=== PATIENT | female | born 1975 | race Caucasian/White ===

== ENCOUNTER 2017-08-07 21:16 | Emergency (ER) | payer OTHER ==
[2017-08-07] MEDS ORDERED: Aspirin 81 MG Tab.Chew PO ONE (21:17)
[2017-08-07] MEDS ORDERED: Sodium Chloride 0.9% 1,000 ML IV ONE (21:30)
[2017-08-07] MEDS ORDERED: Nitroglycerin 0.4 MG Tab.SL SL PRN (21:30)
--- NOTE | 2017-08-07 21:30 | EDM.PDOC ---
<Dawit Morgan - Last Filed: 08/07/17 23:57> ED HPI GENERAL MEDICAL PROBLEM - General Stated Complaint: CHEST PAIN Time Seen by Provider: 08/07/17 21:25 - History of Present Illness INITIAL COMMENTS - FREE TEXT/NARRATIVE: Patient is seen and examined agree with above HEENT grossly within normal limits Chest clear throughout CV regular rate and rhythm Abdomen soft nontender benign exam Extremities full range of motion strength 5 out of 5 no edema [employer]ER alert nonfocal Lab as below EKG Chest 1 view Assessment Anxiety Chest pain resolved Hypertension-improved Medication noncompliance Headache resolved Vasotec 1.25 mg IV Plan Lopressor 5 mg IV 3 Toradol 30 mg IV Patient discharged with hydrochlorothiazide 25 mg by mouth daily #30 no refill Ativan 0.5 mg by mouth twice a day #10 no refill Definitive disposition and diagnosis as appropriate pending reevaluation and review of above - Related Data Allergies Allergy/AdvReac Type Severity Reaction Status Date / Time morphine Allergy Anaphylactic Verified 08/07/17 21:26 Shock Home Meds: Home Meds . [No Known Home Meds] 08/07/17 [History] Course - Vital Signs Last Recorded V/S: Last Vital Signs Temp 98.2 F 08/08/17 00:14 Pulse 74 08/08/17 00:14 Resp 18 08/08/17 00:14 BP 158/86 H 08/08/17 00:14 Pulse Ox 97 08/08/17 00:14 - Orders/Labs/Meds Orders: Active Orders 24 hr Category Date Time Status EKG Documentation Completion [RC] STAT Care 08/07/17 21:17 Active CULTURE URINE [RM] Stat Lab 08/07/17 22:51 Received Labs: Laboratory Tests 08/07/17 08/07/17 08/07/17 Range/Units 21:27 21:27 21:27 WBC 11.19 H (4.0-11.0) K/uL RBC 4.63 (4.30-5.90) M/uL Hgb 8.1 L (12.0-16.0) g/dL Hct 27.8 L (36.0-46.0) % MCV 60.0 L (80.0-98.0) fL MCH 17.5 L (27.0-32.0) pg MCHC 29.1 L (31.0-37.0) g/dL RDW Std Deviation 40.3 (28.0-62.0) fl RDW Coeff of Radha 19 H (11.0-15.0) % Plt Count 216 (150-400) K/uL Add Manual Diff YES Neutrophils % (Manual) 60 (48.0-80.0) % Band Neutrophils % 3 % Lymphocytes % (Manual) 35 (16.0-40.0) % Monocytes % (Manual) 2 (0.0-15.0) % Nucleated RBC % 0.0 /100WBC Absolute Seg Neuts 6.7 H (1.4-5.7) Band Neutrophils # 0.3 Lymphocytes # (Manual) 3.9 H (0.6-2.4) Monocytes # (Manual) 0.2 (0.0-0.8) Nucleated RBCs # 0 K/uL Sodium 136 (136-146) mmol/L Potassium 3.9 (3.5-5.1) mmol/L Chloride 105 (98-110) mmol/L Carbon Dioxide 22 (21-31) mmol/L BUN 9 (6.0-23.0) mg/dL Creatinine 0.7 (0.6-1.5) mg/dL Est Cr Clr Drug Dosing 90.41 mL/min Estimated GFR (MDRD) > 60.0 ml/min Glucose 87 (60-110) mg/dL Calcium 9.3 (8.8-10.8) mg/dL Total Bilirubin 0.2 (0.1-1.5) mg/dL AST 17 (5-40) IU/L ALT 9 (8-54) IU/L Alkaline Phosphatase 135 (40-150) Troponin I < 0.10 (0.0-0.29) NG/ML Total Protein 8.0 (6.0-8.0) g/dL Albumin 3.9 (3.5-5.0) g/dL Globulin 4.1 H (2.0-3.5) g/dL Albumin/Globulin Ratio 1.0 L (1.3-2.8) TSH 3rd Generation 1.13 (0.47-5.0) uIU/mL Meds: Medications Discontinued Medications Generic Name Dose Route Start Last Admin Trade Name Freq PRN Reason Stop Dose Admin Aspirin 324 mg 08/07/17 21:17 08/07/17 21:41 Aspirin PO 08/07/17 21:18 324 mg ONETIME ONE Administration Enalaprilat 1.25 mg 08/07/17 23:15 08/07/17 23:32 Vasotec Iv IVPUSH 08/07/17 23:16 1.25 mg ONETIME ONE Administration Sodium Chloride 1,000 mls @ 999 mls/hr 08/07/17 21:30 08/07/17 21:48 Normal Saline IV 08/07/17 22:30 999 mls/hr STAT ONE Administration Ketorolac Tromethamine 30 mg 08/07/17 23:37 08/07/17 23:51 Toradol IVPUSH 08/07/17 23:38 30 mg ONETIME ONE Administration Lorazepam 1 mg 08/07/17 21:34 08/07/17 21:42 Ativan IVPUSH 08/07/17 21:35 1 mg ONETIME ONE Administration Metoprolol Tartrate 5 mg 08/07/17 22:15 08/07/17 23:18 Lopressor IVPUSH 08/07/17 22:26 5 mg Q5M POPPY Administration Metoprolol Tartrate 5 mg 08/07/17 23:00 08/07/17 23:22 Lopressor IVPUSH 08/07/17 23:11 Not Given Q5M POPPY Nitroglycerin 0.4 mg 08/07/17 21:30 Nitrostat SL Q5M PRN Chest Pain Departure - Departure Time of Disposition: 00:01 Disposition: Home, Self-Care 01 Condition: Good Clinical Impression: Anxiety, Hypertension Instructions: Panic Attacks, [id number], Hypertension Referrals: PCP,None [Primary Care Provider] - Forms: ED Department Discharge Additional Instructions: The following information is given to patients seen in the emergency department who are being discharged to home. This information is to outline your options for follow-up care. We provide all patients seen in our emergency department with a follow-up referral. The need for follow-up, as well as the timing and circumstances, are variable depending upon the specifics of your emergency department visit. If you don't have a primary care physician on staff, we will provide you with a referral. We always advise you to contact your personal physician following an emergency department visit to inform them of the circumstance of the visit and for follow-up with them and/or the need for any referrals to a consulting specialist. The emergency department will also refer you to a specialist when appropriate. This referral assures that you have the opportunity for follow-up care with a specialist. All of these measure are taken in an effort to provide you with optimal care, which includes your follow-up. Under all circumstances we always encourage you to contact your private physician who remains a resource for coordinating your care. When calling for follow-up care, please make the office aware that this follow-up is from your recent emergency room visit. If for any reason you are refused follow-up, please contact the [facility] emergency department at and asked to speak to the emergency department charge nurse. - My Orders Last 24 Hours: My Active Orders 08/07/17 21:17 EKG Documentation Completion [RC] STAT - Assessment/Plan Last 24 Hours: My Active Orders 08/07/17 21:17 EKG Documentation Completion [RC] STAT <Leighann Madrid E - Last Filed: 08/08/17 10:29> ED HPI GENERAL MEDICAL PROBLEM - General Source of Information: Reports: Patient History Limitations: Reports: No Limitations - History of Present Illness INITIAL COMMENTS - FREE TEXT/NARRATIVE: HISTORY AND PHYSICAL: History of present illness: Patient is a 42-year-old female who presents to the emergency room today with complaints of chest pain. She states that last night she started to have some neck pain that radiated to her head which created a "little anxiety". That night she experienced mild chest pain that would last only a few seconds. She states that she had not really given much thought today until about an hour prior to arrival she started experiencing midsternal chest pain, shortness of breath, nausea and anxiety. She is concerned she is having a "heart attack". Current pain is a 8/10 chest she describes as "something sitting on my chest". Has a past medical history of hypertension. She states she does not like to take prescribed medication because "the FDA is trying to kill all of us". She takes a [id number] supplement called natural remedies which she feels helps her blood pressure. Also had a gastric bypass in 2008. Family history of diabetes, cancer and heart disease. She states that both of her parents have from heart attacks. She has no smoking/tobacco use history. Review of systems: As per history of present illness and below otherwise all systems reviewed and negative. Past medical history: As per history of present illness and as reviewed below otherwise noncontributory. Surgical history: As per history of present illness and as reviewed below otherwise noncontributory. Social history: No reported history of drug or alcohol abuse. Family history: As per history of present illness and as reviewed below otherwise noncontributory. Physical exam: Gen.: Well-developed and well-nourished 42-year-old female. Alert and oriented. Appears anxious but in no acute distress. Nontoxic appearing. HEENT: Atraumatic, normocephalic, pupils reactive, negative for conjunctival pallor or scleral icterus, mucous membranes moist, throat clear, neck supple, nontender, trachea midline. Lungs: Clear to auscultation, breath sounds equal bilaterally, chest slightly tender to the left chest wall and pain is reproducible. Heart: S1S2, regular rate and rhythm without overt murmurs Abdomen: Soft, nondistended, nontender. Negative for masses or hepatosplenomegaly. Negative for costovertebral tenderness. Pelvis: Stable nontender. Genitourinary: Deferred. Rectal: Deferred. Extremities: Atraumatic, negative for cords or calf pain. Neurovascular unremarkable. Neuro: Awake, alert, oriented. Cranial nerves II through XII unremarkable. Cerebellum unremarkable. Motor and sensory unremarkable throughout. Exam nonfocal. Patient was signed out to Dr. Le at 2200. Diagnostics: CBC, CMP, troponin, EKG, one view chest, TSH Therapeutics: nurse monitoring, aspirin, nitroglycerin, fluids Impression: Chest pain Anxiety Plan: Dr. Garcia discharged this patient to home. Please see his note Definitive disposition and diagnosis as appropriate pending reevaluation and review of above. Onset: Today Duration: Hour(s): Location: Reports: Chest Quality: Reports: Pressure Severity: Severe Improves with: Reports: None Worsens with: Reports: None Associated Symptoms: Reports: Chest Pain, Headaches (Has resolved since last night), Nausea/Vomiting, Shortness of Breath. Denies: Confusion, Cough, cough w sputum, Diaphoresis, Fever/Chills, Loss of Appetite, Malaise, Rash, Seizure, Syncope, Weakness chest pain Pain Score (Numeric/FACES): 6 ED ROS GENERAL - Review of Systems Review Of Systems: ROS reveals no pertinent complaints other than HPI. ED EXAM, GENERAL - Physical Exam Exam: See Below (See dictation) Course - Vital Signs Last Recorded V/S: Last Vital Signs Temp 98.2 F 08/08/17 00:14 Pulse 74 08/08/17 00:14 Resp 18 08/08/17 00:14 BP 158/86 H 08/08/17 00:14 Pulse Ox 97 08/08/17 00:14 - Orders/Labs/Meds Labs: Laboratory Tests 08/07/17 08/07/17 08/07/17 Range/Units 21:27 21:27 21:27 WBC 11.19 H (4.0-11.0) K/uL RBC 4.63 (4.30-5.90) M/uL Hgb 8.1 L (12.0-16.0) g/dL Hct 27.8 L (36.0-46.0) % MCV 60.0 L (80.0-98.0) fL MCH 17.5 L (27.0-32.0) pg MCHC 29.1 L (31.0-37.0) g/dL RDW Std Deviation 40.3 (28.0-62.0) fl RDW Coeff of Radha 19 H (11.0-15.0) % Plt Count 216 (150-400) K/uL Add Manual Diff YES Neutrophils % (Manual) 60 (48.0-80.0) % Band Neutrophils % 3 % Lymphocytes % (Manual) 35 (16.0-40.0) % Monocytes % (Manual) 2 (0.0-15.0) % Nucleated RBC % 0.0 /100WBC Absolute Seg Neuts 6.7 H (1.4-5.7) Band Neutrophils # 0.3 Lymphocytes # (Manual) 3.9 H (0.6-2.4) Monocytes # (Manual) 0.2 (0.0-0.8) Nucleated RBCs # 0 K/uL Sodium 136 (136-146) mmol/L Potassium 3.9 (3.5-5.1) mmol/L Chloride 105 (98-110) mmol/L Carbon Dioxide 22 (21-31) mmol/L BUN 9 (6.0-23.0) mg/dL Creatinine 0.7 (0.6-1.5) mg/dL Est Cr Clr Drug Dosing 90.41 mL/min Estimated GFR (MDRD) > 60.0 ml/min Glucose 87 (60-110) mg/dL Calcium 9.3 (8.8-10.8) mg/dL Total Bilirubin 0.2 (0.1-1.5) mg/dL AST 17 (5-40) IU/L ALT 9 (8-54) IU/L Alkaline Phosphatase 135 (40-150) Troponin I < 0.10 (0.0-0.29) NG/ML Total Protein 8.0 (6.0-8.0) g/dL Albumin 3.9 (3.5-5.0) g/dL Globulin 4.1 H (2.0-3.5) g/dL Albumin/Globulin Ratio 1.0 L (1.3-2.8) TSH 3rd Generation 1.13 (0.47-5.0) uIU/mL
[2017-08-07] MEDS ORDERED: LORazepam 2 MG/ML SDV IVPUSH ONE (21:34)
[2017-08-07 22:18] LABS: CHLORIDE,CL 105 mmol/L (98-110); SODIUM,NA 136 mmol/L (136-146)
[2017-08-07] MEDS: Metoprolol Tartrate 5 MG/5 ML SDV IVPUSH SCH ×5 (22:54→23:22)
[2017-08-07] MEDS ORDERED: Enalaprilat 1.25 MG/ML SDV IVPUSH ONE (23:15)
[2017-08-07] MEDS ORDERED: Ketorolac 30 MG/ML SDV IVPUSH ONE (23:37)
--- NOTE | 2017-08-08 09:32 | CR ---
EXAM DATE: 08/07/17 PATIENT'S AGE: 42 Patient: ANDREINA WHITTEN Facility: [place], [place] Site . Site : [id number] Study: XRay Chest [id number] 10:19:59 PM Ordering Physician: Jose Pastor Final Report: Indication: Chest pain Technique: Chest 1 view Comparison: None Findings/Impression: Cardiovascular and mediastinum: Unremarkable cardiac silhouette for a portable technique. An unfolded aorta. Lungs and pleural space: A lordotic study. Elevated right hemidiaphragm. No consolidation or pleural effusions. No pneumothorax seen. Bones and soft tissues: No significant findings. Dictated by Jhoan Cervantes MD @ 08/07/2017 11:14:35 PM Dictated by: Jhoan Cervantes MD @ 08/07/2017 23:14:45 (Electronic Signature) Report Signed by Proxy. [facility] HOSPITALJaja
== END 2017-08-08 00:17 | disposition home or self-care (01) ==
LOC: MW.ED 21:16
DX: F41.9 Anxiety disorder, unspecified (principal); I10 Essential (primary) hypertension; R07.89 Other chest pain; Z91.14 Patient's other noncompliance with medication regimen; Z88.5 Allergy status to narcotic agent; Z98.84 Bariatric surgery status
CPT/HCPCS: 71010; 80053; 84443; 84484; 85025; 87086; 93005; 96361; 96374; 96375; 99285; A9270; J1885; J2060; J7040; 99283

== ENCOUNTER 2017-10-05 19:10 | Emergency (ER) | payer OTHER ==
--- NOTE | 2017-10-05 19:27 | EDM.PDOC ---
ED HPI GENERAL MEDICAL PROBLEM - General Chief Complaint: Headache Stated Complaint: BLOOD PRESSURE MEDS/HEADACHE Time Seen by Provider: 10/05/17 19:10 Source of Information: Reports: Patient History Limitations: Reports: No Limitations - History of Present Illness INITIAL COMMENTS - FREE TEXT/NARRATIVE: HISTORY AND PHYSICAL: History of present illness: Patient is a 42-year-old female who presents to the emergency room today with complaints of an intermittent headache 2 weeks. She says in the last 2 weeks she has stopped her caffeine use and has been out of her antihypertensive medication. Previously she was taking losartan 100 mg daily, but recently moved here and has not been able to find a primary care provider. She reports that she has insurance and had some difficulty finding someone "out of network". Describes the headache as a tension headache with pressure around her scalp and going into her trapezius muscles, light sensitivity and noise sensitivity. She denies any chest pain, shortness of breath, abdominal pain, nausea, vomiting or diarrhea. She denies any recent head injury or trauma. No change in vision. Patient reports that she was seen in July 2017 and prescribed "something for my blood pressure" but was on sure of what was called. She did not take this medication for very long "it was so weak and didn't do anything for my blood pressure" as she was able to fill her Losartan that time. She has not followed-up since that visit. Review of systems: As per history of present illness and below otherwise all systems reviewed and negative. Past medical history: As per history of present illness and as reviewed below otherwise noncontributory. Surgical history: As per history of present illness and as reviewed below otherwise noncontributory. Social history: No reported history of drug or alcohol abuse. Family history: As per history of present illness and as reviewed below otherwise noncontributory. Physical exam: General: Well-developed and well-nourished 42-year-old female. Alert and oriented. Nontoxic appearing and in no acute distress. HEENT: Atraumatic, normocephalic, pupils reactive, negative for conjunctival pallor or scleral icterus, mucous membranes moist, throat clear, neck supple, nontender, trachea midline. No drooling or trismus. No meningeal signs. Lungs: Clear to auscultation, breath sounds equal bilaterally, chest nontender. Heart: S1S2, regular rate and rhythm Abdomen: Soft, nondistended, nontender. Negative for masses or hepatosplenomegaly. Negative for costovertebral tenderness. Pelvis: Stable nontender. Genitourinary: Deferred. Rectal: Deferred. Extremities: Atraumatic, negative for cords or calf pain. Neurovascular unremarkable. Neuro: Awake, alert, oriented. Cranial nerves II through XII unremarkable. Cerebellum unremarkable. Motor and sensory unremarkable throughout. Exam nonfocal. After physical examination I did offer the patient routine lab work along with IV medications to help alleviate her migraine headache. She declines any lab work at this time. She would like to try to manage her blood pressure prior to any IV medications. She states that "once I get my blood pressure lowered I think the headache will go away". I am willing to try Clonidine by mouth initially, if this does not lower her blood pressure and alleviate her headache at that time she is willing to do IV medications. Patient's blood pressure has improved. Patient continues to have a headache. As the patient is describing a tension type headache for the past 2 weeks I will give her one tablet of Flexeril. She currently does not have a ride, will dispense to home. Thorough education was given to her. She'll take this tab prior to bedtime. She declined the lab work that we discussed previously. Declines any IV medications. She is requesting to go home. For further management she will take her prescribed losartan and [id number] pain medication to manage her headache. Information and referral to primary care was given to her. She voices understanding of following up for further education refills. She denies any further questions at this time. Diagnostics: [] Therapeutics: Clonidine 0.1 mg PO Impression: #1 request for medication refill #2 hypertension #3 tension headache Plan: 1. Please take the tablet of Flexeril prior to bedtime. This medication will cause drowsiness or do not take it when driving or needing to be functioning outside of the house. 2. A limited amount of your low certain has been prescribed for you. For further medication refills you do need to find primary care. Phone numbers have been given to you. If he told them he had been seen in the emergency room he can get an expedited appointment. Please call Sunday to arrange that. 3. Return to the ED as needed and as discussed. Definitive disposition and diagnosis as appropriate pending reevaluation and review of above. Duration: Week(s): Location: Reports: Head headache Pain Score (Numeric/FACES): 7 - Related Data Allergies Allergy/AdvReac Type Severity Reaction Status Date / Time adhesive Allergy Hives Verified 10/05/17 19:24 latex Allergy Hives Verified 10/05/17 19:24 morphine Allergy Anaphylactic Verified 10/05/17 19:23 Shock povidone-iodine Allergy Hives Verified 10/05/17 19:24 [From Betadine] soap [From Betadine] Allergy Hives Verified 10/05/17 19:24 Home Meds: Home Meds Antihypertensive Medication 10/05/17 [History] Past Medical History HEENT History: Reports: None Cardiovascular History: Reports: Hypertension Respiratory History: Reports: None Gastrointestinal History: Reports: None Genitourinary History: Reports: None Musculoskeletal History: Reports: None Neurological History: Reports: None Psychiatric History: Reports: Anxiety Endocrine/Metabolic History: Reports: None Hematologic History: Reports: None Immunologic History: Reports: None Oncologic (Cancer) History: Reports: None Dermatologic History: Reports: None - Infectious Disease History Infectious Disease History: Reports: None - Past Surgical History Head Surgeries/Procedures: Reports: None GI Surgical History: Reports: Bariatric Procedure Female Surgical History: Reports: None Social & Family History - Family History Family Medical History: Noncontributory Cardiac: Reports: Other (See Below) Other Cardiac Family History: Heart Disease Endocrine/Metabolic: Reports: Diabetes, type II Oncologic: Reports: Other (See Below) Other Oncologic Family History: Cancer - Tobacco Use Smoking Status *Q: Never Smoker - Caffeine Use Caffeine Use: Reports: None - Recreational Drug Use Recreational Drug Use: No ED ROS GENERAL - Review of Systems Review Of Systems: ROS reveals no pertinent complaints other than HPI. - Physical Exam Exam: See Below (See dictation) Course - Vital Signs Last Recorded V/S: Last Vital Signs Temp 98.1 F 10/05/17 20:22 Pulse 77 10/05/17 20:22 Resp 17 10/05/17 20:22 BP 142/81 H 10/05/17 20:22 Pulse Ox 99 10/05/17 20:22 - Orders/Labs/Meds Orders: Active Orders 24 hr Category Date Time Status Cyclobenzaprine [Flexeril] Med 10/05/17 20:24 Once 10 mg PO ONETIME ONE Meds: Medications Discontinued Medications Generic Name Dose Route Start Last Admin Trade Name Nicolette PRN Reason Stop Dose Admin Clonidine HCl 0.1 mg 10/05/17 19:35 10/05/17 19:41 Catapres PO 10/05/17 19:36 0.1 mg ONETIME ONE Administration Ketorolac Tromethamine 60 mg 10/05/17 19:42 10/05/17 19:49 Toradol IM 10/05/17 19:43 60 mg ONETIME ONE Administration Departure - Departure Time of Disposition: 20:27 Disposition: Home, Self-Care 01 Clinical Impression: Encounter for medication refill, Tension-type headache Hypertension Qualifiers: Hypertension type: essential hypertension Qualified Code(s): I10 - Essential ( primary) hypertension - Discharge Information Referrals: PCP,None [Primary Care Provider] - Forms: ED Department Discharge Additional Instructions: My general discharge The following information is given to patients seen in the emergency department who are being discharged to home. This information is to outline your options for follow-up care. We provide all patients seen in our emergency department with a follow-up referral. The need for follow-up, as well as the timing and circumstances, are variable depending upon the specifics of your emergency department visit. If you don't have a primary care physician on staff, we will provide you with a referral. We always advise you to contact your personal physician following an emergency department visit to inform them of the circumstance of the visit and for follow-up with them and/or the need for any referrals to a consulting specialist. The emergency department will also refer you to a specialist when appropriate. This referral assures that you have the opportunity for follow-up care with a specialist. All of these measure are taken in an effort to provide you with optimal care, which includes your follow-up. Under all circumstances we always encourage you to contact your private physician who remains a resource for coordinating your care. When calling for follow-up care, please make the office aware that this follow-up is from your recent emergency room visit. If for any reason you are refused follow-up, please contact the [facility] Emergency Department at and asked to speak to the emergency department charge nurse. [facility] [address] [place] [id number] 1. Please take the tablet of Flexeril prior to bedtime. This medication (muscle relaxor for the tension headache) will cause drowsiness or do not take it when driving or needing to be functioning outside of the house. 2. A limited amount of your Losartan (blood pressure medication) has been prescribed for you. For further medication refills you do need to find primary care. Phone numbers have been given to you. If you inform the appointment desk that you been seen in the emergency room, they typically can get you an expedited appointment. Please call Sunday to arrange that. 3. Return to the ED as needed and as discussed. - My Orders Last 24 Hours: My Active Orders 10/05/17 20:24 Cyclobenzaprine [Flexeril] 10 mg PO ONETIME ONE - Assessment/Plan Last 24 Hours: My Active Orders 10/05/17 20:24 Cyclobenzaprine [Flexeril] 10 mg PO ONETIME ONE
[2017-10-05] MEDS ORDERED: cloNIDine 0.1 MG Tab PO ONE (19:35)
[2017-10-05] MEDS ORDERED: Ketorolac 60 MG/2 ML SDV IM ONE (19:42)
[2017-10-05] MEDS ORDERED: Cyclobenzaprine 10 MG Tab PO ONE (20:24)
== END 2017-10-05 20:48 | disposition home or self-care (01) ==
LOC: MW.ED 19:10
DX: G44.209 Tension-type headache, unspecified, not intractable (principal); I10 Essential (primary) hypertension; Z88.5 Allergy status to narcotic agent; Z91.040 Latex allergy status; Z88.8 Allergy status to other drugs, medicaments and biological substances; Z91.048 Other nonmedicinal substance allergy status
CPT/HCPCS: 96372; 99284; A9270; J1885

== ENCOUNTER 2017-12-07 14:25 | Inpatient (IN) | payer OTHER ==
[2017-12-07] MEDS ORDERED: HYDROmorphone 2 MG/ML SDV IVPUSH ONE (14:52)
[2017-12-07] MEDS ORDERED: Pantoprazole 40 MG Vial IVPUSH ONE (14:58)
[2017-12-07] MEDS: Sodium Chloride 0.9% 1,000 ML IV SCH (15:09)
--- NOTE | 2017-12-07 15:38 | EDM.PDOC ---
ED HPI GENERAL MEDICAL PROBLEM - General Chief Complaint: Abdominal Pain Stated Complaint: RIGHT UPPER ABDOMINAL PAIN Time Seen by Provider: 12/07/17 15:36 Source of Information: Reports: Patient - History of Present Illness INITIAL COMMENTS - FREE TEXT/NARRATIVE: HISTORY AND PHYSICAL: History of present illness: [Patient with history of gastric bypass presents with right upper quadrant pain intermittently over weeks to months worsening today maximally 10 out of 10 currently 2 out of 10 no fever nausea vomiting chills sweats Previous examination there is clinic's significant for a negative ultrasound and normal lab included been liver function and pancreatic function hemoglobin found to be 7.5 No fever nausea vomiting chills sweats no chest pain shortness breath headache dizziness palpitation no bowel or urine symptoms ] Review of systems: As per history of present illness and below otherwise all systems reviewed and negative. Past medical history: As per history of present illness and as reviewed below otherwise noncontributory. Surgical history: As per history of present illness and as reviewed below otherwise noncontributory. Social history: No reported history of drug or alcohol abuse. Family history: As per history of present illness and as reviewed below otherwise noncontributory. Physical exam: HEENT: Atraumatic, normocephalic, pupils reactivepositive conjunctival pallor negative for scleral icterus, mucous membranes moist, throat clear, neck supple , nontender, trachea midline. Lungs: Clear to auscultation, breath sounds equal bilaterally, chest nontender. Heart: S1S2, regular, negative for clicks, rubs, or JVD. Abdomen: Soft, nondistended, nontender. Negative for masses or hepatosplenomegaly. Negative for costovertebral tenderness. Pelvis: Stable nontender. Genitourinary: Deferred. Rectal: Deferred. Extremities: Atraumatic, negative for cords or calf pain. Neurovascular unremarkable. Neuro: Awake, alert, oriented. Cranial nerves II through XII unremarkable. Cerebellum unremarkable. Motor and sensory unremarkable throughout. Exam nonfocal. Diagnostics: [CBC CMP lipase on file from previous clinic visit Ultrasound right upper quadrant on file from clinic visit today Guaiac-negative here in the emergency room Type and screen ] Therapeutics: [2 units packed red blood cells normal saline bolus Dilaudid 1 mg IV Proton X 80 mg IV ] Impression: [ anemia Biliary colic Chronic history of baseline ] Definitive disposition and diagnosis as appropriate pending reevaluation and review of above. RUQ Pain Pain Score (Numeric/FACES): 7 - Related Data Allergies Allergy/AdvReac Type Severity Reaction Status Date / Time adhesive Allergy Hives Verified 12/07/17 14:46 latex Allergy Hives Verified 12/07/17 14:46 morphine Allergy Anaphylactic Verified 12/07/17 14:46 Shock povidone-iodine Allergy Hives Verified 12/07/17 14:46 [From Betadine] soap [From Betadine] Allergy Hives Verified 12/07/17 14:46 Home Meds: Home Meds Losartan [Cozaar] 100 mg PO DAILY 12/07/17 [History] Past Medical History HEENT History: Reports: None Cardiovascular History: Reports: Hypertension Respiratory History: Reports: None Gastrointestinal History: Reports: None Genitourinary History: Reports: None 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: Musculoskeletal History: Reports: None Neurological History: Reports: None Psychiatric History: Reports: Anxiety Endocrine/Metabolic History: Reports: None Hematologic History: Reports: None Immunologic History: Reports: None Oncologic (Cancer) History: Reports: None Dermatologic History: Reports: None - Infectious Disease History Infectious Disease History: Reports: None - Past Surgical History Head Surgeries/Procedures: Reports: None GI Surgical History: Reports: Bariatric Procedure Female Surgical History: Reports: None, Tubal Ligation Social & Family History - Family History Family Medical History: Noncontributory Cardiac: Reports: Other (See Below) Other Cardiac Family History: Heart Disease Endocrine/Metabolic: Reports: Diabetes, type II Oncologic: Reports: Other (See Below) Other Oncologic Family History: Cancer - Tobacco Use Smoking Status *Q: Never Smoker Second Hand Smoke Exposure: No - Caffeine Use Caffeine Use: Reports: None - Recreational Drug Use Recreational Drug Use: No ED ROS GENERAL - Review of Systems Review Of Systems: ROS reveals no pertinent complaints other than HPI. ED EXAM, GENERAL - Physical Exam Exam: See Below Course - Vital Signs Last Recorded V/S: Last Vital Signs Temp 98.9 F 12/07/17 14:42 Pulse 88 12/07/17 14:42 Resp 18 12/07/17 14:42 BP 137/74 12/07/17 14:42 Pulse Ox 99 12/07/17 14:42 - Orders/Labs/Meds Orders: Active Orders 24 hr Category Date Time Status Guaiac [OCCULT BLOOD DIAGNOSTIC] [OP] Stat Lab 12/07/17 15:36 Ordered PACKED CELLS [RED BLOOD CELLS LP] [BBK] Stat Lab 12/07/17 14:55 Received TYPE AND SCREEN [BBK] Stat Lab 12/07/17 14:55 Received Sodium Chloride 0.9% [Normal Saline] 1,000 ml Med 12/07/17 14:45 Active IV STAT Medication Orders Sodium Chloride (Normal Saline) 1,000 mls @ 125 mls/hr IV STAT POPPY Last Admin: 12/07/17 15:09 Dose: 125 mls/hr Meds: Medications Generic Name Dose Route Start Last Admin Trade Name Freq PRN Reason Stop Dose Admin Sodium Chloride 1,000 mls @ 125 mls/hr 12/07/17 14:45 12/07/17 15:09 Normal Saline IV 125 mls/hr STAT POPPY Administration Discontinued Medications Generic Name Dose Route Start Last Admin Trade Name Freq PRN Reason Stop Dose Admin Hydromorphone HCl 1 mg 12/07/17 14:52 12/07/17 15:10 Dilaudid IVPUSH 12/07/17 14:53 1 mg ONETIME ONE Administration Pantoprazole Sodium 80 mg 12/07/17 14:58 12/07/17 15:10 Protonix Iv IVPUSH 12/07/17 14:59 80 mg .BOLUS ONE Administration Departure - Departure Time of Disposition: 15:59 Disposition: Admitted As Inpatient 66 Condition: Poor Clinical Impression: Anemia - Discharge Information Referrals: Cassius Guzman MD [Primary Care Provider] - Forms: ED Department Discharge - My Orders Last 24 Hours: My Active Orders 12/07/17 14:45 Sodium Chloride 0.9% [Normal Saline] 1,000 ml IV STAT 12/07/17 14:55 PACKED CELLS [RED BLOOD CELLS LP] [BBK] Stat TYPE AND SCREEN [BBK] Stat 12/07/17 15:36 Guaiac [OCCULT BLOOD DIAGNOSTIC] [OP] Stat - Assessment/Plan Last 24 Hours: My Active Orders 12/07/17 14:45 Sodium Chloride 0.9% [Normal Saline] 1,000 ml IV STAT 12/07/17 14:55 PACKED CELLS [RED BLOOD CELLS LP] [BBK] Stat TYPE AND SCREEN [BBK] Stat 12/07/17 15:36 Guaiac [OCCULT BLOOD DIAGNOSTIC] [OP] Stat
--- NOTE | 2017-12-07 17:12 | PCM.HP ---
H&P History of Present Illness - General Date of Service: 12/07/17 Admit Problem/Dx: Admission Diagnosis/Problem Admission Diagnosis/Problem Anemia, abdominal pain Source of Information: Patient History Limitations: Reports: No Limitations - History of Present Illness Initial Comments - Free Text/Narative: 42-year-old female with past medical history of gastric bypass surgery and kidney stones, is being admitted with anemia and diffuse abdominal pain that can be localized at times to the right upper quadrant. This pain has waxed and waned over the past few weeks but has worsened over the past 3 days. There are no aggravating factors. Patient does have a history of bariatric surgery in 2008. She is not currently following with the bariatric surgeon but has an appointment set up with one in [place] in the upcoming weeks. She has had episodes of diarrhea but denies any blood in the stool. Urinary habits are unchanged. She notes that her periods are very irregular and that when they are present that she goes through multiple pads in a 30 minute to an hour period she did have a transvaginal ultrasound back in 2014 which showed that she does have uterine fibroids. She has an upcoming appointment with an FABRICATION INSPECTOR on December 17 to discuss a possible hysterectomy. Her last menstrual period was one week ago. She has also had tubal ligation and her ovaries removed. She states that the abdominal pain that she is feeling is very similar to when she had kidney stones in the past. Again, she denies any urinary symptoms. She has felt increased fatigue over the last few weeks as well. She also endorses some epigastric pain and some left left upper quadrant pain. She does have a history of reflux but does not currently take anything. She also has a history of hypertension. Patient recently had a right upper quadrant ultrasound which was negative. She is not taking any blood thinners or daily aspirin at this time. Patient also notes a fluttering feeling of the heart without any chest pain since the worsening of her symptoms of abdominal pain over the last 3 days. These fluttering feelings last for 40 seconds and occur on a daily basis. This has no history of heart attack or stroke. There is a family history of heart disease with her father having suffered a heart attack in the past. As the patient today she denies any headaches, dizziness, chest pain, palpitations, shortness of breath, wheezing, cough,, dysuria, hematuria, peripheral edema, numbness/tingling/weakness in the upper and lower extremities bilaterally, fever. ER course: Blood work was not done as the patient was seen previously in clinic on the same day today. She was given an IV dose of Dilaudid and also Protonix while in the ER. Blood work done in the clinic of her PCP showed an ESR of 41, hemoglobin of 7.5. Amylase and lipase were negative. CMP was unremarkable, Including liver function tests. UA showed +2 bacteria. RUQ Pain Pain Score (Numeric/FACES): 7 - Related Data Allergies/Adverse Reactions: Allergies Allergy/AdvReac Type Severity Reaction Status Date / Time adhesive Allergy Hives Verified 12/07/17 14:46 latex Allergy Hives Verified 12/07/17 14:46 morphine Allergy Anaphylactic Verified 12/07/17 14:46 Shock povidone-iodine Allergy Hives Verified 12/07/17 14:46 [From Betadine] soap [From Betadine] Allergy Hives Verified 12/07/17 14:46 Home Medications: Home Meds Losartan [Cozaar] 100 mg PO DAILY 12/07/17 [History] Past Medical History HEENT History: Reports: None Cardiovascular History: Reports: Hypertension Respiratory History: Reports: None Gastrointestinal History: Reports: None Genitourinary History: Reports: None FABRICATION INSPECTOR History: Reports: Musculoskeletal History: Reports: None Neurological History: Reports: None Psychiatric History: Reports: Anxiety Endocrine/Metabolic History: Reports: None Hematologic History: Reports: None Immunologic History: Reports: None Oncologic (Cancer) History: Reports: None Dermatologic History: Reports: None - Infectious Disease History Infectious Disease History: Reports: None - Past Surgical History Head Surgeries/Procedures: Reports: None GI Surgical History: Reports: Bariatric Procedure Female Surgical History: Reports: None, Tubal Ligation Social & Family History - Family History Family Medical History: Noncontributory Cardiac: Reports: Other (See Below) Other Cardiac Family History: Heart Disease Endocrine/Metabolic: Reports: Diabetes, type II Oncologic: Reports: Other (See Below) Other Oncologic Family History: Cancer - Tobacco Use Smoking Status *Q: Never Smoker Second Hand Smoke Exposure: No - Caffeine Use Caffeine Use: Reports: None - Recreational Drug Use Recreational Drug Use: No H&P Review of Systems - Review of Systems: Review Of Systems: See Below General: Reports: Fatigue HEENT: Reports: No Symptoms Pulmonary: Reports: No Symptoms Cardiovascular: Reports: Palpitations Gastrointestinal: Reports: Abdominal Pain, Diarrhea, Nausea, Vomiting Genitourinary: Reports: No Symptoms Musculoskeletal: Reports: No Symptoms Skin: Reports: No Symptoms Psychiatric: Reports: No Symptoms Neurological: Reports: No Symptoms Hematologic/Lymphatic: Reports: No Symptoms Immunologic: Reports: No Symptoms Exam - Exam Exam: See Below - Vital Signs Vital Signs: Last Vital Signs Temp 98.8 F 12/07/17 16:49 Pulse 93 12/07/17 16:49 Resp 18 12/07/17 16:49 BP 141/84 H 12/07/17 16:49 Pulse Ox 98 12/07/17 16:49 Weight: 163 lb 2.273 oz - Exam General: Alert, Oriented, Cooperative HEENT: Conjunctiva Clear, Hearing Intact, Mucosa Moist & [place] Neck: Supple, Trachea Midline, 2 Lungs: Clear to Auscultation, Normal Respiratory Effort Cardiovascular: Regular Rate, Regular Rhythm GI/Abdominal Exam: Normal Bowel Sounds, Soft, No Organomegaly, No Distention, No Abnormal Bruit, No Mass, Pelvis Stable, Tender (Tenderness in the right upper quadrant mostly but also diffusely tender around the abdomen.) Rectal (Female) Exam: Heme - Stool Extremities: Normal Inspection, Normal Range of Motion, Non-Tender, No Pedal Edema, Normal Capillary Refill Peripheral Pulses: 2+: Radial (L), Radial (R), Posterior Tibial (L), Posterior Tibial (R) Skin: Warm, Dry, Intact Neuro Extensive - Mental Status: Alert, Oriented x3, Normal Mood/Affect, Normal Cognition Psychiatric: Alert, Normal Affect, Normal Mood - Patient Data Lab Results Last 24 hrs: Laboratory Results - last 24 hr 12/07/17 Range/Units 14:55 Blood Type B POSITIVE Antibody Screen NEGATIVE Crossmatch See Detail - Problem List (1) Urinary tract infection SNOMED Code(s): 89010017 ICD Code: N39.0 - URINARY TRACT INFECTION, SITE NOT SPECIFIED Status: Acute Current Visit: Yes (2) Abdominal pain SNOMED Code(s): 69570824 ICD Code: R10.9 - UNSPECIFIED ABDOMINAL PAIN Status: Acute Current Visit : Yes (3) Heart palpitations SNOMED Code(s): 85437591 ICD Code: R00.2 - PALPITATIONS Status: Acute Current Visit: Yes (4) Anemia SNOMED Code(s): 362239006 ICD Code: D64.9 - ANEMIA, UNSPECIFIED Status: Acute Current Visit: Yes Problem List Initiated/Reviewed/Updated: Yes Orders Last 24hrs: Active Orders 24 hr Category Date Time Status Admission Status [Patient Status] [ADT] Stat ADT 12/07/17 16:09 Active HIDA with EF [Cholescintigraphy w Pharm Int] [NM] Exams 12/07/17 16:45 Ordered Routine CBC WITH AUTO DIFF [HEME] AM Lab 12/08/17 05:11 Ordered CBC WITH AUTO DIFF [HEME] AM Lab 12/09/17 05:11 Ordered CBC WITH AUTO DIFF [HEME] AM Lab 12/10/17 05:11 Ordered CBC WITH AUTO DIFF [HEME] Routine Lab 12/07/17 16:43 Ordered CMP [COMPREHENSIVE METABOLIC PN,CMP] [CHEM] Routine Lab 12/07/17 16:43 Ordered COMPREHENSIVE METABOLIC PN,CMP [CHEM] AM Lab 12/08/17 05:11 Ordered COMPREHENSIVE METABOLIC PN,CMP [CHEM] AM Lab 12/09/17 05:11 Ordered COMPREHENSIVE METABOLIC PN,CMP [CHEM] AM Lab 12/10/17 05:11 Ordered Guaiac [OCCULT BLOOD DIAGNOSTIC] [OP] Stat Lab 12/07/17 15:36 Ordered HELICOBACTER PYLORI AB IGG [CHEM] Routine Lab 12/07/17 17:05 Ordered IRON/TIBC [CHEM] Routine Lab 12/07/17 16:43 Ordered LIPASE [CHEM] Routine Lab 12/07/17 17:05 Ordered PACKED CELLS [RED BLOOD CELLS LP] [BBK] Stat Lab 12/07/17 14:55 Results PERIPH BLOOD SMEAR PATHOLOGIST [HEME] Routine Lab 12/07/17 16:43 Ordered TYPE AND SCREEN [BBK] Stat Lab 12/07/17 14:55 Results VITAMIN B12 [CHEM] Routine Lab 12/07/17 16:43 Ordered Sodium Chloride 0.9% [Normal Saline] 1,000 ml Med 12/07/17 14:45 Active IV STAT Medication Orders Sodium Chloride (Normal Saline) 1,000 mls @ 125 mls/hr IV STAT POPPY Last Admin: 12/07/17 15:09 Dose: 125 mls/hr Assessment/Plan Comment:: 42-year-old female is being admitted with abdominal pain and anemia. #1. Anemia: -CBC shows a hemoglobin of 7.5. Patient will be transfused 2 units of packed red blood cells. Follow-up CBC to ensure that hemoglobin is climbing. -Anemia could be secondary to a history of uterine fibroids or menorrhagia. Patient is seeing an FABRICATION INSPECTOR on December 17 to discuss a possible hysterectomy. -Iron studies and B12 are pending. -We'll start the patient on daily iron. #2. Abdominal pain: -CMP was unremarkable including LFTs. Lipase and amylase were normal. HIDA scan has been ordered but cannot be done until Sunday. The patient may need to have this done as an outpatient. Patient may need an abdominal CT as she also has epigastric pain and some left upper quadrant pain but her main concern is the right upper quadrant pain. -Patient will be started on daily Protonix as she has a history of reflux. -Patient will be started on as needed zofran. #3. UTI: -Urinalysis shows +2 bacteria. Patient will be started on Bactrim. #4. Fluttering of the heart: -EKG will be ordered. Patient will be placed on telemetry. -Will check magnesium and phosphorus. DVT prophylaxis: SCDs Disposition: 1-2 days pending improvement.
[2017-12-07] MEDS ORDERED: Ondansetron 4 MG Tab.DIS PO PRN (17:27)
[2017-12-07] MEDS ORDERED: Sulfamethoxazole/Trimethoprim 800-160 MG Tab PO SCH (17:30)
[2017-12-07] MEDS: Pantoprazole 40 MG Tab.CR PO SCH (17:49)
[2017-12-07] MEDS: Ferrous Sulfate 325 MG Tab PO SCH (17:49)
[2017-12-07] MEDS: Amoxicillin 500 MG Cap PO SCH (20:24)
[2017-12-07] MEDS: Acetaminophen 325 MG Tab PO PRN (20:25)
[2017-12-08] MEDS: Sodium Chloride 0.9% 1,000 ML IV SCH (02:43)
[2017-12-08 06:28] LABS: CHLORIDE,CL 107 mmol/L (98-107); SODIUM,NA 138 mmol/L (136-145)
[2017-12-08] MEDS: Pantoprazole 40 MG Tab.CR PO SCH (06:35)
[2017-12-08] MEDS: Acetaminophen 325 MG Tab PO PRN ×2 (06:35→10:51)
[2017-12-08] MEDS ORDERED: Sucralfate Suspension 1 GM/10 ML Cup PO SCH (08:45)
[2017-12-08] MEDS ORDERED: Losartan 50 MG Tab PO SCH (09:00)
[2017-12-08] MEDS: Ferrous Sulfate 325 MG Tab PO SCH ×2 (09:15→11:45)
[2017-12-08] MEDS: Amoxicillin 500 MG Cap PO SCH (09:16)
--- NOTE | 2017-12-08 10:40 | PCM.CONS ---
H&P History of Present Illness - General Date of Service: 12/08/17 Admit Problem/Dx: Admission Diagnosis/Problem Admission Diagnosis/Problem Anemia, abdominal pain Source of Information: Patient History Limitations: Reports: No Limitations - History of Present Illness Initial Comments - Free Text/Narative: Patient presented to the ED yesterday with anemia and severe RUQ pain. She states that she has had intermittent abdominal pain in her RUQ and epigastric area for the past 3-4 years but that last 3 days she developed severe pain that did not improve. This was associated with heartburn which she hasnt had since before her gastric bypass. She has had intermittent diarrhea but denies any black tarry stool. She denies hematochezia. SHe also has menorrhagia. She has an upcoming appointment with an RECYCLING OPERATOR on December 17 to discuss a possible hysterectomy. She has a history of kidney stones and said that the pain was as severe as when she had kidney stones but not similar in location. She has also felt tired and weak. She was found to be positive for H. pylori. Her hemoglobin was 7.5. She was treated for H pylori infection and given blood. This morning her pain is gone and she feels more energetic. She tolerated a regular diet and states that she feels much better. She denies any BM since admission. RUQ Pain Pain Score (Numeric/FACES): 0 - Related Data Allergies/Adverse Reactions: Allergies Allergy/AdvReac Type Severity Reaction Status Date / Time adhesive Allergy Hives Verified 12/07/17 14:46 latex Allergy Hives Verified 12/07/17 14:46 morphine Allergy Anaphylactic Verified 12/07/17 14:46 Shock povidone-iodine Allergy Hives Verified 12/07/17 14:46 [From Betadine] soap [From Betadine] Allergy Hives Verified 12/07/17 14:46 Home Medications: Home Meds Losartan [Cozaar] 100 mg PO DAILY 12/07/17 [History] Past Medical History HEENT History: Reports: None Cardiovascular History: Reports: Hypertension Respiratory History: Reports: None Gastrointestinal History: Reports: None Genitourinary History: Reports: None RECYCLING OPERATOR History: Reports: Musculoskeletal History: Reports: None Neurological History: Reports: None Psychiatric History: Reports: Anxiety Endocrine/Metabolic History: Reports: None Hematologic History: Reports: None Immunologic History: Reports: None Oncologic (Cancer) History: Reports: None Dermatologic History: Reports: None - Infectious Disease History Infectious Disease History: Reports: None - Past Surgical History Head Surgeries/Procedures: Reports: None GI Surgical History: Reports: Bariatric Procedure Female Surgical History: Reports: None, Tubal Ligation Social & Family History - Family History Family Medical History: Noncontributory Cardiac: Reports: Other (See Below) Other Cardiac Family History: Heart Disease Endocrine/Metabolic: Reports: Diabetes, type II Oncologic: Reports: Other (See Below) Other Oncologic Family History: Cancer - Tobacco Use Smoking Status *Q: Never Smoker Second Hand Smoke Exposure: No - Caffeine Use Caffeine Use: Reports: None - Recreational Drug Use Recreational Drug Use: No H&P Review of Systems - Review of Systems: Review Of Systems: ROS reveals no pertinent complaints other than HPI. Exam - Exam Exam: See Below - Vital Signs Vital Signs: Last Vital Signs Temp 36.9 C 12/08/17 07:37 Pulse 81 12/08/17 07:37 Resp 14 12/08/17 07:37 BP 130/80 12/08/17 09:15 Pulse Ox 98 12/08/17 07:37 Weight: 77.1 kg - Exam General: Alert, Oriented HEENT: Conjunctiva Clear, Mucosa Moist & [place], Posterior Pharynx Clear, Pupils Equal, Pupils Reactive Lungs: Clear to Auscultation, Normal Respiratory Effort Cardiovascular: Regular Rate, Regular Rhythm GI/Abdominal Exam: Soft, Non-Tender, No Distention, No Mass Back Exam: Normal Inspection Extremities: Normal Inspection - Patient Data Lab Results Last 24 hrs: Laboratory Results - last 24 hr 12/07/17 12/07/17 12/07/17 Range/Units 11:20 11:20 11:20 WBC (4.0-11.0) K/uL RBC (4.30-5.90) M/uL Hgb (12.0-16.0) g/dL Hct (36.0-46.0) % MCV (80.0-98.0) fL MCH (27.0-32.0) pg MCHC (31.0-37.0) g/dL RDW Std Deviation (28.0-62.0) fl RDW Coeff of Radha (11.0-15.0) % Plt Count (150-400) K/uL Neut % (Auto) (48.0-80.0) % Lymph % (Auto) (16.0-40.0) % [place] % (Auto) (0.0-15.0) % Eos % (Auto) (0.0-7.0) % Baso % (Auto) (0.0-1.5) % Neut # (Auto) (1.4-5.7) K/uL Lymph # (Auto) (0.6-2.4) K/uL [place] # (Auto) (0.0-0.8) K/uL Eos # (Auto) (0.0-0.7) K/uL Baso # (Auto) (0.0-0.1) K/uL Nucleated RBC % /100WBC Nucleated RBCs # K/uL Smear Path Review SENT TO PATHOLOGY Sodium (136-145) mmol/L Potassium (3.5-5.1) mmol/L Chloride (98-107) mmol/L Carbon Dioxide (21.0-32.0) mmol/L BUN (7.0-18.0) mg/dL Creatinine (0.6-1.0) mg/dL Est Cr Clr Drug Dosing mL/min Estimated GFR (MDRD) ml/min Glucose (74-106) mg/dL Calcium (8.5-10.1) mg/dL Phosphorus (2.6-4.7) mg/dL Magnesium (1.5-2.0) mg/dL Iron 13 L (50-175) ug/dL TIBC 481 H (250-450) ug/dL % Saturation 2.70 L (20-55) % Total Bilirubin (0.2-1.0) mg/dL AST (15-37) IU/L ALT (14-63) IU/L Alkaline Phosphatase (46-116) U/L Total Protein (6.4-8.2) g/dL Albumin (3.4-5.0) g/dL Globulin (2.0-3.5) g/dL Albumin/Globulin Ratio (1.3-2.8) Vitamin B12 1109 H (193-986) pg/mL H. pylori IgG Antibody (NEG) Blood Type Antibody Screen Crossmatch 12/07/17 12/07/17 12/07/17 Range/Units 11:20 11:20 14:55 WBC (4.0-11.0) K/uL RBC (4.30-5.90) M/uL Hgb (12.0-16.0) g/dL Hct (36.0-46.0) % MCV (80.0-98.0) fL MCH (27.0-32.0) pg MCHC (31.0-37.0) g/dL RDW Std Deviation (28.0-62.0) fl RDW Coeff of Radha (11.0-15.0) % Plt Count (150-400) K/uL Neut % (Auto) (48.0-80.0) % Lymph % (Auto) (16.0-40.0) % [place] % (Auto) (0.0-15.0) % Eos % (Auto) (0.0-7.0) % Baso % (Auto) (0.0-1.5) % Neut # (Auto) (1.4-5.7) K/uL Lymph # (Auto) (0.6-2.4) K/uL [place] # (Auto) (0.0-0.8) K/uL Eos # (Auto) (0.0-0.7) K/uL Baso # (Auto) (0.0-0.1) K/uL Nucleated RBC % /100WBC Nucleated RBCs # K/uL Smear Path Review Sodium (136-145) mmol/L Potassium (3.5-5.1) mmol/L Chloride (98-107) mmol/L Carbon Dioxide (21.0-32.0) mmol/L BUN (7.0-18.0) mg/dL Creatinine (0.6-1.0) mg/dL Est Cr Clr Drug Dosing mL/min Estimated GFR (MDRD) ml/min Glucose (74-106) mg/dL Calcium (8.5-10.1) mg/dL Phosphorus 3.8 (2.6-4.7) mg/dL Magnesium 1.6 (1.5-2.0) mg/dL Iron (50-175) ug/dL TIBC (250-450) ug/dL % Saturation (20-55) % Total Bilirubin (0.2-1.0) mg/dL AST (15-37) IU/L ALT (14-63) IU/L Alkaline Phosphatase (46-116) U/L Total Protein (6.4-8.2) g/dL Albumin (3.4-5.0) g/dL Globulin (2.0-3.5) g/dL Albumin/Globulin Ratio (1.3-2.8) Vitamin B12 (193-986) pg/mL H. pylori IgG Antibody POSITIVE H (NEG) Blood Type B POSITIVE Antibody Screen NEGATIVE Crossmatch See Detail 12/08/17 12/08/17 12/08/17 Range/Units 01:30 05:33 05:33 WBC 7.91 (4.0-11.0) K/uL RBC 4.65 (4.30-5.90) M/uL Hgb 9.4 L 9.0 L (12.0-16.0) g/dL Hct 30.7 L 29.6 L (36.0-46.0) % MCV 63.7 L (80.0-98.0) fL MCH 19.4 L (27.0-32.0) pg MCHC 30.4 L (31.0-37.0) g/dL RDW Std Deviation 53.8 (28.0-62.0) fl RDW Coeff of Radha 24 H (11.0-15.0) % Plt Count 275 (150-400) K/uL Neut % (Auto) 53.9 (48.0-80.0) % Lymph % (Auto) 35.1 (16.0-40.0) % [place] % (Auto) 9.7 (0.0-15.0) % Eos % (Auto) 0.9 (0.0-7.0) % Baso % (Auto) 0.4 (0.0-1.5) % Neut # (Auto) 4.3 (1.4-5.7) K/uL Lymph # (Auto) 2.8 H (0.6-2.4) K/uL [place] # (Auto) 0.8 (0.0-0.8) K/uL Eos # (Auto) 0.1 (0.0-0.7) K/uL Baso # (Auto) 0.0 (0.0-0.1) K/uL Nucleated RBC % 0.0 /100WBC Nucleated RBCs # 0 K/uL Smear Path Review Sodium 138 (136-145) mmol/L Potassium 3.6 (3.5-5.1) mmol/L Chloride 107 (98-107) mmol/L Carbon Dioxide 22.8 (21.0-32.0) mmol/L BUN 6 L (7.0-18.0) mg/dL Creatinine 0.6 (0.6-1.0) mg/dL Est Cr Clr Drug Dosing 109.73 mL/min Estimated GFR (MDRD) > 60.0 ml/min Glucose 74 (74-106) mg/dL Calcium 8.6 (8.5-10.1) mg/dL Phosphorus (2.6-4.7) mg/dL Magnesium (1.5-2.0) mg/dL Iron (50-175) ug/dL TIBC (250-450) ug/dL % Saturation (20-55) % Total Bilirubin 1.1 H (0.2-1.0) mg/dL AST 17 (15-37) IU/L ALT 9 L (14-63) IU/L Alkaline Phosphatase 80 (46-116) U/L Total Protein 6.8 (6.4-8.2) g/dL Albumin 3.1 L (3.4-5.0) g/dL Globulin 3.7 H (2.0-3.5) g/dL Albumin/Globulin Ratio 0.8 L (1.3-2.8) Vitamin B12 (193-986) pg/mL H. pylori IgG Antibody (NEG) Blood Type Antibody Screen Crossmatch Result Diagrams: 12/08/17 05:33 12/08/17 05:33 Joselo Results Last 24 hrs: Microbiology 12/07/17 15:00 Stool Occult Blood (JOSELO) - Final Stool / Feces NEGATIVE OCCULT BLOOD Consult PN Assessment/Plan Procedures: Procedures ASSAY OF FREE THYROXINE (10/31/17) ASSAY OF TROPONIN QUANT (08/07/17) ASSAY THYROID STIM HORMONE (10/29/17) ASSAY TRIIODOTHYRONINE (T3) (10/31/17) CHEST X-RAY 1 VIEW FRONTAL (08/07/17) COMPLETE CBC W/AUTO DIFF WBC (08/07/17) COMPREHEN METABOLIC PANEL (08/07/17) ELECTROCARDIOGRAM TRACING (08/07/17) EMERGENCY DEPT VISIT (10/05/17) EMERGENCY DEPT VISIT (08/07/17) GLYCOSYLATED HEMOGLOBIN TEST (10/29/17) HYDRATE IV INFUSION ADD-ON (08/07/17) METABOLIC PANEL TOTAL CA (10/29/17) ROUTINE VENIPUNCTURE (10/31/17) THER/PROPH/DIAG INJ IV PUSH (08/07/17) THER/PROPH/DIAG INJ SC/IM (10/05/17) TRANSVAGINAL US NON-OB (11/12/17) TX/PRO/DX INJ NEW DRUG ADDON (08/07/17) URINE CULTURE/COLONY COUNT (08/07/17) VITAMIN B-12 (10/29/17) (1) H. pylori infection SNOMED Code(s): 911829373 Code(s): A04.8 - OTHER SPECIFIED BACTERIAL INTESTINAL INFECTIONS Current Visit: Yes (2) Abdominal pain SNOMED Code(s): 79921246 Code(s): R10.9 - UNSPECIFIED ABDOMINAL PAIN Current Visit: Yes Problem List Initiated/Reviewed/Updated: Yes Plan: -H pylori infection: Treat with po clarithromycin, amoxicillin and PPI. Also give patient sucralfate or carafate therapy for 2 weeks. -Will follow up in clinic for outpatient CT abdomen/pelvis with oral and IV contrast, EGD and colonoscopy, as well as possible HIDA scan to check for biliary dyskinesia Patient and I discussed the pathophysiology of gastric ulcers in the context of a previous gastric bypass. We discussed H pylori infection and the need for antibiotic treatment and PPI therapy. We also touched on gallbladder disease specifically biliary dyskinesia. The patient feels well, appears stable clinically and from a lab basis and does not need any emergent endoscopy. If she should become unstable or have clinical decline please call me with any questions.
[2017-12-08] MEDS ORDERED: Iopamidol 755 Mg/ML 100 ML Bottle IVPUSH STA (12:33)
--- NOTE | 2017-12-08 15:40 | PCM.DCSUM1 ---
Discharge Summary - Hospital Course Free Text/Narrative:: Patient admitted in the hospital with severe anemia at 7.5 mg/dl , due to bleeding from fibroids and severe abdominal pain constant for the past 3 days , burning like , in the epigastrium duodenal area and and was started on Clarithromycin and amoxicillin and Protonix 40 mg po BID. She was transfused 2 units of blood . US upper quadrant right was unremarkable . She was found positive for H pylori treatment with Amoxicillin 1 gram po BId , Clarithromycin 500 mg po BID for 14 days and Nexium 40 mg po BID.She had Surgery consult and was recommended Ct abdomen as outpatient also Surgery is planning EGD as outpatient. Patient pain resolved today. Patient wanted to have Ct scan done before discharge and to be called with the results or f/up results with Dr. Marcum . - Discharge Data Discharge Date: 12/08/17 Discharge Disposition: Home, Self-Care 01 Condition: Stable - Discharge Diagnosis/Problem(s) (1) Anemia due to acute blood loss SNOMED Code(s): 990496738 ICD Code: D62 - ACUTE POSTHEMORRHAGIC ANEMIA Status: Acute (2) Abdominal pain SNOMED Code(s): 86879970 ICD Code: R10.9 - UNSPECIFIED ABDOMINAL PAIN Status: Acute (3) Gastritis, Helicobacter pylori SNOMED Code(s): 344494537 ICD Code: K29.70 - GASTRITIS, UNSPECIFIED, WITHOUT BLEEDING; B96.81 - HELICOBACTER PYLORI THE CAUSE OF DISEASES CLASSD [id number] Status: Acute (4) Intermittent palpitations SNOMED Code(s): 524379226 ICD Code: R00.2 - PALPITATIONS Status: Acute - Patient Summary/Data Consults: Consultations 12/08/17 08:49 Consult to Physician [CONS] Urgent - Patient Instructions Diet: Heart Healthy Diet Activity: As Tolerated Driving: May Drive Today Showering/Bathing: May Shower - Discharge Plan Prescriptions/Med Rec: Amoxicillin [IJD: Amoxicillin] 1,000 mg PO Q12HR 14 Days #56 capsule Clarithromycin [Biaxin] 500 mg PO BID 14 Days #28 tablet Ferrous Sulfate 325 mg PO TIDMEALS 60 Days #180 tablet Pantoprazole [ProTONIX] 40 mg PO BIDAC 30 Days #60 tab.cr Sucralfate [Carafate] 1 gm PO Q6H 30 Days #2 cup Home Medications: Home Meds Losartan [Cozaar] 100 mg PO DAILY 12/07/17 [History] Acetaminophen [Tylenol] 650 mg PO Q4H PRN tablet 12/08/17 [Rx] Amoxicillin [IJD: Amoxicillin] 1,000 mg PO Q12HR 14 Days #56 capsule 12/08/17 [ Rx] Clarithromycin [Biaxin] 500 mg PO BID 14 Days #28 tablet 12/08/17 [Rx] Ferrous Sulfate 325 mg PO TIDMEALS 60 Days #180 tablet 12/08/17 [Rx] Pantoprazole [ProTONIX] 40 mg PO BIDAC 30 Days #60 tab.cr 12/08/17 [Rx] Sucralfate [Carafate] 1 gm PO Q6H 30 Days #2 cup 12/08/17 [Rx] Patient Handouts: Amoxicillin capsules or tablets, Anemia, Urinary Tract Infection, Adult, [id number], Abdominal Pain, Adult, [id number], Sucralfate tablets, Pantoprazole tablets, Clarithromycin tablets Referrals: Cassius Guzman MD [Primary Care Provider] - Champ Jackson MD [Physician] - Suzanne Marcum MD [Physician] - - Patient Data Vitals - Most Recent: Last Vital Signs Temp 98.5 F 12/08/17 07:37 Pulse 81 12/08/17 07:37 Resp 14 12/08/17 07:37 BP 130/80 12/08/17 09:15 Pulse Ox 98 12/08/17 07:37 Weight - Most Recent: 169 lb 15.622 oz I&O - Last 24 hours: Intake & Output 12/08/17 12/08/17 12/08/17 06:59 14:59 22:59 Intake Total 1103 825 Output Total 700 800 Balance 403 25 Lab Results - Last 24 hrs: Laboratory Results - last 24 hr 12/07/17 12/07/17 12/07/17 Range/Units 11:20 11:20 11:20 WBC (4.0-11.0) K/uL RBC (4.30-5.90) M/uL Hgb (12.0-16.0) g/dL Hct (36.0-46.0) % MCV (80.0-98.0) fL MCH (27.0-32.0) pg MCHC (31.0-37.0) g/dL RDW Std Deviation (28.0-62.0) fl RDW Coeff of Radha (11.0-15.0) % Plt Count (150-400) K/uL Neut % (Auto) (48.0-80.0) % Lymph % (Auto) (16.0-40.0) % [place] % (Auto) (0.0-15.0) % Eos % (Auto) (0.0-7.0) % Baso % (Auto) (0.0-1.5) % Neut # (Auto) (1.4-5.7) K/uL Lymph # (Auto) (0.6-2.4) K/uL [place] # (Auto) (0.0-0.8) K/uL Eos # (Auto) (0.0-0.7) K/uL Baso # (Auto) (0.0-0.1) K/uL Nucleated RBC % /100WBC Nucleated RBCs # K/uL Smear Path Review SENT TO PATHOLOGY Sodium (136-145) mmol/L Potassium (3.5-5.1) mmol/L Chloride (98-107) mmol/L Carbon Dioxide (21.0-32.0) mmol/L BUN (7.0-18.0) mg/dL Creatinine (0.6-1.0) mg/dL Est Cr Clr Drug Dosing mL/min Estimated GFR (MDRD) ml/min Glucose (74-106) mg/dL Calcium (8.5-10.1) mg/dL Phosphorus (2.6-4.7) mg/dL Magnesium (1.5-2.0) mg/dL Iron 13 L (50-175) ug/dL TIBC 481 H (250-450) ug/dL % Saturation 2.70 L (20-55) % Total Bilirubin (0.2-1.0) mg/dL AST (15-37) IU/L ALT (14-63) IU/L Alkaline Phosphatase (46-116) U/L Total Protein (6.4-8.2) g/dL Albumin (3.4-5.0) g/dL Globulin (2.0-3.5) g/dL Albumin/Globulin Ratio (1.3-2.8) Vitamin B12 1109 H (193-986) pg/mL H. pylori IgG Antibody (NEG) Blood Type Antibody Screen Crossmatch 12/07/17 12/07/17 12/07/17 Range/Units 11:20 11:20 14:55 WBC (4.0-11.0) K/uL RBC (4.30-5.90) M/uL Hgb (12.0-16.0) g/dL Hct (36.0-46.0) % MCV (80.0-98.0) fL MCH (27.0-32.0) pg MCHC (31.0-37.0) g/dL RDW Std Deviation (28.0-62.0) fl RDW Coeff of Radha (11.0-15.0) % Plt Count (150-400) K/uL Neut % (Auto) (48.0-80.0) % Lymph % (Auto) (16.0-40.0) % [place] % (Auto) (0.0-15.0) % Eos % (Auto) (0.0-7.0) % Baso % (Auto) (0.0-1.5) % Neut # (Auto) (1.4-5.7) K/uL Lymph # (Auto) (0.6-2.4) K/uL [place] # (Auto) (0.0-0.8) K/uL Eos # (Auto) (0.0-0.7) K/uL Baso # (Auto) (0.0-0.1) K/uL Nucleated RBC % /100WBC Nucleated RBCs # K/uL Smear Path Review Sodium (136-145) mmol/L Potassium (3.5-5.1) mmol/L Chloride (98-107) mmol/L Carbon Dioxide (21.0-32.0) mmol/L BUN (7.0-18.0) mg/dL Creatinine (0.6-1.0) mg/dL Est Cr Clr Drug Dosing mL/min Estimated GFR (MDRD) ml/min Glucose (74-106) mg/dL Calcium (8.5-10.1) mg/dL Phosphorus 3.8 (2.6-4.7) mg/dL Magnesium 1.6 (1.5-2.0) mg/dL Iron (50-175) ug/dL TIBC (250-450) ug/dL % Saturation (20-55) % Total Bilirubin (0.2-1.0) mg/dL AST (15-37) IU/L ALT (14-63) IU/L Alkaline Phosphatase (46-116) U/L Total Protein (6.4-8.2) g/dL Albumin (3.4-5.0) g/dL Globulin (2.0-3.5) g/dL Albumin/Globulin Ratio (1.3-2.8) Vitamin B12 (193-986) pg/mL H. pylori IgG Antibody POSITIVE H (NEG) Blood Type B POSITIVE Antibody Screen NEGATIVE Crossmatch See Detail 12/08/17 12/08/17 12/08/17 Range/Units 01:30 05:33 05:33 WBC 7.91 (4.0-11.0) K/uL RBC 4.65 (4.30-5.90) M/uL Hgb 9.4 L 9.0 L (12.0-16.0) g/dL Hct 30.7 L 29.6 L (36.0-46.0) % MCV 63.7 L (80.0-98.0) fL MCH 19.4 L (27.0-32.0) pg MCHC 30.4 L (31.0-37.0) g/dL RDW Std Deviation 53.8 (28.0-62.0) fl RDW Coeff of Radha 24 H (11.0-15.0) % Plt Count 275 (150-400) K/uL Neut % (Auto) 53.9 (48.0-80.0) % Lymph % (Auto) 35.1 (16.0-40.0) % [place] % (Auto) 9.7 (0.0-15.0) % Eos % (Auto) 0.9 (0.0-7.0) % Baso % (Auto) 0.4 (0.0-1.5) % Neut # (Auto) 4.3 (1.4-5.7) K/uL Lymph # (Auto) 2.8 H (0.6-2.4) K/uL [place] # (Auto) 0.8 (0.0-0.8) K/uL Eos # (Auto) 0.1 (0.0-0.7) K/uL Baso # (Auto) 0.0 (0.0-0.1) K/uL Nucleated RBC % 0.0 /100WBC Nucleated RBCs # 0 K/uL Smear Path Review Sodium 138 (136-145) mmol/L Potassium 3.6 (3.5-5.1) mmol/L Chloride 107 (98-107) mmol/L Carbon Dioxide 22.8 (21.0-32.0) mmol/L BUN 6 L (7.0-18.0) mg/dL Creatinine 0.6 (0.6-1.0) mg/dL Est Cr Clr Drug Dosing 109.73 mL/min Estimated GFR (MDRD) > 60.0 ml/min Glucose 74 (74-106) mg/dL Calcium 8.6 (8.5-10.1) mg/dL Phosphorus (2.6-4.7) mg/dL Magnesium (1.5-2.0) mg/dL Iron (50-175) ug/dL TIBC (250-450) ug/dL % Saturation (20-55) % Total Bilirubin 1.1 H (0.2-1.0) mg/dL AST 17 (15-37) IU/L ALT 9 L (14-63) IU/L Alkaline Phosphatase 80 (46-116) U/L Total Protein 6.8 (6.4-8.2) g/dL Albumin 3.1 L (3.4-5.0) g/dL Globulin 3.7 H (2.0-3.5) g/dL Albumin/Globulin Ratio 0.8 L (1.3-2.8) Vitamin B12 (193-986) pg/mL H. pylori IgG Antibody (NEG) Blood Type Antibody Screen Crossmatch AUBREY Results - Last 24 hrs: Microbiology 12/07/17 15:00 Stool Occult Blood (AUBREY) - Final Stool / Feces NEGATIVE OCCULT BLOOD Med Orders - Current: Current Medications Discontinued Medications Acetaminophen (Tylenol) 650 mg PO Q4H PRN PRN Reason: Pain (Mild 1-3)/fever Last Admin: 12/08/17 10:51 Dose: 650 mg Amoxicillin (Amoxil) 1,000 mg PO Q12HR POPPY Last Admin: 12/08/17 09:16 Dose: 1,000 mg Clarithromycin (Biaxin) 500 mg PO BID [facility] Last Admin: 12/08/17 09:16 Dose: 500 mg Ferrous Sulfate (Ferrous Sulfate) 325 mg PO TIDMEALS [facility] Last Admin: 12/08/17 11:45 Dose: 325 mg Hydromorphone HCl (Dilaudid) 1 mg IVPUSH ONETIME ONE Stop: 12/07/17 14:53 Last Admin: 12/07/17 15:10 Dose: 1 mg Sodium Chloride (Normal Saline) 1,000 mls @ 125 mls/hr IV STAT [facility] Last Admin: 12/08/17 02:43 Dose: 125 mls/hr Iopamidol (Isovue-370 (76%)) 100 ml IVPUSH ONETIME STA Stop: 12/08/17 12:34 Last Admin: 12/08/17 12:34 Dose: 100 ml Losartan Potassium (Cozaar) 100 mg PO DAILY [facility] Last Admin: 12/08/17 09:15 Dose: 100 mg Ondansetron HCl (Zofran Odt) 4 mg PO ONETIME PRN PRN Reason: Nausea/Vomiting Last Admin: 12/07/17 17:49 Dose: 4 mg Pantoprazole Sodium (Protonix Iv) 80 mg IVPUSH .BOLUS ONE Stop: 12/07/17 14:59 Last Admin: 12/07/17 15:10 Dose: 80 mg Pantoprazole Sodium (Protonix) 40 mg PO BIDAC [facility] Last Admin: 12/08/17 06:35 Dose: 40 mg Sucralfate (Carafate) 1 gm PO Q6H [facility] Last Admin: 12/08/17 09:15 Dose: 1 gm Trimethoprim/Sulfamethoxazole (Septra Ds) 1 tab PO BID [facility] Last Admin: 12/07/17 18:57 Dose: Not Given
--- NOTE | 2017-12-09 09:37 | PCM.SN ---
- Free Text/Narrative Note: Patient was called home and left voice message to discuss the results of the Ct scan of the abdomen which shows she has a right with hydroureter. No obstructing stone seen.Dw Dr. Lovett , he will see the patient in his office tomorrow at 1 pm .
--- NOTE | 2017-12-10 10:44 | CT ---
EXAM DATE: 12/07/17 PATIENT'S AGE: 42 Patient: ANDREINA WHITTEN Facility: [place], [place] Site . Site : 1975 Study: CT Abdomen/Pelvis W/ and W/O Cont [id number]/[id number] 12:36:23 PM Ordering Physician: Reyna Fernandez Final Report: abdominal pain. Contrast-enhanced CT abdomen and pelvis with coronal sagittal re-formatted images obtained. COMPARISON: No comparison Studies are available. Findings: The lung bases are clear. Normal heart size. Lung bases are clear. No pericardial or pleural effusion. Gastric bypass change. Gastric pouch is slightly prominent and filled with presumed food material. Pancreas adrenal glands and liver appears unremarkable. Gallbladder is unremarkable Nonobstructing small stones right kidney. Multiple small low-density lesions in both kidneys that are too small to characterize and statistically would represent cysts. There is mild right-sided hydronephrosis and hydroureter. No obstructing stone seen. Urinary bladder is unremarkable. No abdominal aortic aneurysm. Normal appendix. 2 cm left ovarian cyst. Small amount of free fluid in the pelvis,nonspecific. No inflammatory change in abdomen pelvis. Impression: 1. Right mild hydronephrosis and hydroureter. No obstructing stones are seen. Additional nonobstructing renal calculi on the right. Normal appendix. Small amount of free fluid in the pelvis is nonspecific. Please note that all CT scans at this facility use dose modulation, iterative reconstruction, and/or weight-based dosing when appropriate to reduce radiation dose to as low as reasonably achievable. Dictated by Jayla Stock MD @ Dec 08 2017 12:56PM (Electronic Signature) Report Signed by Proxy. KONRAD
== END 2017-12-08 14:00 | disposition home or self-care (01) | DRG 812 ==
LOC: MW.ED 14:25 → MW.MS 16:09
PROVIDERS: ADMIT Internal Medicine; ATTEND Internal Medicine
PROC: 30233N1 Transfusion of Nonautologous Red Blood Cells into Peripheral Vein, Percutaneous Approach (ICD-10-PCS; principal; 2017-12-07)
DX: D64.9 Anemia, unspecified (principal); D62 Acute posthemorrhagic anemia; N39.0 Urinary tract infection, site not specified; N13.30 Unspecified hydronephrosis; N13.4 Hydroureter; R10.11 Right upper quadrant pain; K29.70 Gastritis, unspecified, without bleeding; Z98.84 Bariatric surgery status; B96.81 Helicobacter pylori [H. pylori] as the cause of diseases classified elsewhere; R00.2 Palpitations; D25.9 Leiomyoma of uterus, unspecified; I10 Essential (primary) hypertension; F41.9 Anxiety disorder, unspecified; N92.0 Excessive and frequent menstruation with regular cycle; R19.7 Diarrhea, unspecified; Z87.442 Personal history of urinary calculi; Z91.040 Latex allergy status; Z79.899 Other long term (current) drug therapy; Z88.5 Allergy status to narcotic agent
CPT/HCPCS: 36415; 82272; 82607; 83550; 83735; 84100; 86677; 86850; 86900; 86901; 86920; 86921; 86922; 87086; 88104; 96361; 96374; 96375; 99285; C9113; J1170; J7040; 36430; 74178; 74178-26; 80053; 82962; 85014; 85018; 85025; 93005; A9270-GY; P9016; Q9967

== ENCOUNTER 2017-12-20 08:27 | Day surgery (SDC) | payer OTHER ==
[2017-12-19 12:04] LABS: CHLORIDE,CL 105 mmol/L (98-107); SODIUM,NA 138 mmol/L (136-145)
[~2017-12-20 08:27] MED LIST: Sodium Chloride 0.9% 10 ML Syringe FLUSH PRN; Sodium Chloride 0.9% 2.5 ML Syringe FLUSH PRN; Sugammadex Sodium 200 MG/2 ML VIAL ONE; ceFAZolin 2 GM in Premix Bag 1 BAG IV ONE
[2017-12-20] MEDS: Lactated Ringers 1,000 ML IV SCH ×2 (08:48→13:19)
--- NOTE | 2017-12-20 09:01 | PCM.PREANE ---
Preanesthetic Assessment - Anesthesia/Transfusion/Family Hx Anesthesia History: Prior Anesthesia Without Reaction Family History of Anesthesia Reaction: No Transfusion History: Prior Transfusion Without Reaction - Review of Systems General: No Symptoms Pulmonary: No Symptoms Cardiovascular: No Symptoms Gastrointestinal: No Symptoms Neurological: No Symptoms Other: Reports: None - Physical Assessment NPO Status Date: 12/19/17 Height: 1.66 m Weight: 77.564 kg ASA Class: 2 Mental Status: Alert & Oriented x3 Airway Class: Mallampati = 1 Dentition: Reports: Dentures ROM/Head Extension: Full Lungs: Clear to Auscultation, Normal Respiratory Effort - Lab Values: Laboratory Last Values WBC 5.99 K/uL (4.0-11.0) 12/19/17 11:20 RBC 5.14 M/uL (4.30-5.90) 12/19/17 11:20 Hgb 10.3 g/dL (12.0-16.0) L 12/19/17 11:20 Hct 33.9 % (36.0-46.0) L 12/19/17 11:20 MCV 66.0 fL (80.0-98.0) L 12/19/17 11:20 MCH 20.0 pg (27.0-32.0) L 12/19/17 11:20 MCHC 30.4 g/dL (31.0-37.0) L 12/19/17 11:20 RDW Std Deviation 62.0 fl (28.0-62.0) 12/19/17 11:20 RDW Coeff of Radha 27 % (11.0-15.0) H 12/19/17 11:20 Plt Count 186 K/uL (150-400) 12/19/17 11:20 Nucleated RBC % 0.0 /100WBC 12/19/17 11:20 Nucleated RBCs # 0 K/uL 12/19/17 11:20 Sodium 138 mmol/L (136-145) 12/19/17 11:20 Potassium 3.7 mmol/L (3.5-5.1) 12/19/17 11:20 Chloride 105 mmol/L (98-107) 12/19/17 11:20 Carbon Dioxide 24.3 mmol/L (21.0-32.0) 12/19/17 11:20 BUN 7 mg/dL (7.0-18.0) 12/19/17 11:20 Creatinine 0.8 mg/dL (0.6-1.0) 12/19/17 11:20 Est Cr Clr Drug Dosing 84.09 mL/min 12/19/17 11:20 Estimated GFR (MDRD) > 60.0 ml/min 12/19/17 11:20 Glucose 94 mg/dL (74-106) 12/19/17 11:20 Calcium 8.9 mg/dL (8.5-10.1) 12/19/17 11:20 HCG, Qual NEGATIVE (NEG) 12/19/17 11:20 Blood Type B POSITIVE 12/19/17 11:20 Antibody Screen NEGATIVE 12/19/17 11:20 - Allergies Allergies/Adverse Reactions: Allergies Allergy/AdvReac Type Severity Reaction Status Date / Time adhesive Allergy Hives Verified 12/17/17 10:15 latex Allergy Hives Verified 12/17/17 10:15 morphine Allergy Anaphylactic Verified 12/17/17 10:15 Shock povidone-iodine Allergy Hives Verified 12/17/17 10:15 [From Betadine] soap [From Betadine] Allergy Hives Verified 12/17/17 10:15 - Anesthesia Plan Pre-Op Medication Ordered: None - Acknowledgements Anesthesia Type Planned: General Anesthesia Pt an Appropriate Candidate for the Planned Anesthesia: Yes Alternatives and Risks of Anesthesia Discussed w Pt/Guardian: Yes Pt/Guardian Understands and Agrees with Anesthesia Plan: Yes Additional Comments: PMH: htn, thyroid replacement, s/p gastric bypass NOTE: allergy to morphine PreAnesthesia Questionnaire HEENT History: Reports: Other (See Below) Other HEENT History: wears glasses, has top and bottom dentures Cardiovascular History: Reports: Hypertension Respiratory History: Reports: None Gastrointestinal History: Reports: GERD Genitourinary History: Reports: Renal Calculus HYDROMETALLURGICAL ENGINEER History: Reports: Musculoskeletal History: Reports: None Neurological History: Reports: None Psychiatric History: Reports: Anxiety Endocrine/Metabolic History: Reports: None Hematologic History: Reports: Anemia, Blood Transfusion(s) Immunologic History: Reports: None Oncologic (Cancer) History: Reports: None Dermatologic History: Reports: None - Infectious Disease History Infectious Disease History: Reports: None - Past Surgical History Head Surgeries/Procedures: Reports: None GI Surgical History: Reports: Bariatric Procedure Female Surgical History: Reports: Tubal Ligation Neurological Surgical History: Reports: None - SUBSTANCE USE Smoking Status *Q: Never Smoker Tobacco Use Within Last Twelve Months: No Second Hand Smoke Exposure: No Recreational Drug Use History: No - HOME MEDS Home Medications: Home Meds Losartan [Cozaar] 100 mg PO DAILY 12/07/17 [History] Acetaminophen [Tylenol] 650 mg PO Q4H PRN tablet 12/08/17 [Rx] Amoxicillin [IJD: Amoxicillin] 1,000 mg PO Q12HR 14 Days #56 capsule 12/08/17 [ Rx] Clarithromycin [Biaxin] 500 mg PO BID 14 Days #28 tablet 12/08/17 [Rx] Ferrous Sulfate 325 mg PO TIDMEALS 60 Days #180 tablet 12/08/17 [Rx] Pantoprazole [ProTONIX] 40 mg PO BIDAC 30 Days #60 tab.cr 12/08/17 [Rx] Sucralfate [Carafate] 1 gm PO Q6H 30 Days #2 cup 12/08/17 [Rx] - CURRENT (IN HOUSE) MEDS Current Meds: Current Medications Lactated Ringer's (Ringers, Lactated) 1,000 mls @ 125 mls/hr IV ASDIRECTED POPPY Last Admin: 12/20/17 08:48 Dose: 125 mls/hr Sodium Chloride (Saline Flush) 10 ml FLUSH ASDIRECTED PRN PRN Reason: Keep Vein Open Sodium Chloride (Saline Flush) 2.5 ml FLUSH ASDIRECTED PRN PRN Reason: Keep Vein Open Discontinued Medications Cefazolin Sodium/Dextrose 2 gm (/ Premix) 50 mls @ 100 mls/hr IV ONETIME ONE Stop: 12/19/17 09:11
[2017-12-20] MEDS ORDERED: Fluorescein 5 ML Vial ONE (09:59)
[2017-12-20] MEDS ORDERED: Propofol 200 MG/20 ML SDV ONE (10:21)
[2017-12-20] MEDS ORDERED: Ketorolac 30 MG/ML SDV ONE (10:21)
[2017-12-20] MEDS ORDERED: Ondansetron 4 MG/2 ML SDV ONE (10:21)
[2017-12-20] MEDS ORDERED: fentaNYL 250 MCG/5 ML SDV ONE (10:21)
[2017-12-20] MEDS ORDERED: Glycopyrrolate 0.2 MG/ML SDV ONE (10:21)
[2017-12-20] MEDS ORDERED: Midazolam 1 MG/ML 2 ML SDV ONE (10:21)
[2017-12-20] MEDS ORDERED: Lidocaine 2% 5 ML SDV ONE (10:21)
[2017-12-20] MEDS ORDERED: Dexamethasone 4 MG/ML 5 ML MDV ONE (10:33)
[2017-12-20] MEDS ORDERED: diphenhydrAMINE 50 MG/ML SDV ONE (10:33)
[2017-12-20] MEDS ORDERED: ceFAZolin 1 GM Vial ONE (10:46)
[2017-12-20] MEDS ORDERED: Octyl 2-Cyanoacrylate 1 Tube ONE (11:36)
[2017-12-20] MEDS ORDERED: Ondansetron 4 MG/2 ML SDV IVPUSH PRN (12:07)
[2017-12-20] MEDS ORDERED: Acetaminophen/oxyCODONE 325-5 MG Tab PO PRN ×2 (12:07)
[2017-12-20] MEDS ORDERED: Ketorolac 30 MG/ML SDV IVPUSH PRN (12:07)
[2017-12-20] MEDS ORDERED: fentaNYL 100 MCG/2 ML SDV ONE (12:07)
[2017-12-20] MEDS ORDERED: Morphine 4 MG/ML Syringe IVPUSH PRN (12:07)
[2017-12-20] MEDS ORDERED: Ketorolac 30 MG/ML SDV IVPUSH ONE (12:07)
[2017-12-20] MEDS ORDERED: Promethazine 25 MG/ML SDV IM PRN (12:07)
--- NOTE | 2017-12-20 12:12 | PCM.OPNOTE ---
- General Post-Op/Procedure Note Date of Surgery/Procedure: 12/20/17 Operative Procedure(s): TLH,Richard salpengectomy, Solyx tvt and cystoscopy. Post-Op Diagnosis: Same Anesthesia Technique: General ET Tube Primary Surgeon: Lemuel Lott Portable Track Crew Chief: Padma Lang EBL in mLs: 250 Complications: None Condition: Good
[2017-12-20] MEDS ORDERED: Acetaminophen 1,000 MG in Premix Bag 1 BAG IV ONE (12:23)
--- NOTE | 2017-12-20 12:47 | PCM48HPAN ---
Post Anesthesia Note - EVALUATION WITHIN 48HRS OF ANESTHETIC Vital Signs in Normal Range: Yes Patient Participated in Evaluation: Yes Respiratory Function Stable: Yes Airway Patent: Yes Cardiovascular Function Stable: Yes Hydration Status Stable: Yes Pain Control Satisfactory: Yes Nausea and Vomiting Control Satisfactory: Yes Mental Status Recovered: Yes Resp Rate: 16 - COMMENTS/OBSERVATIONS Free Text/Narrative:: alert, minimal pain, no nausea
[2017-12-20] MEDS: fentaNYL 100 MCG/2 ML SDV IVPUSH PRN ×2 (12:49→12:54)
--- NOTE | 2017-12-20 13:23 | OR ---
SURGEON: Lemuel Lott MD DATE OF PROCEDURE: PREOPERATIVE DIAGNOSES: 1. Menometrorrhagia. 2. Anemia. 3. Fibroid uterus. 4. Stress urinary incontinence. POSTOPERATIVE DIAGNOSES: 1. Menometrorrhagia. 2. Anemia. 3. Fibroid uterus. 4. Stress urinary incontinence. OPERATIONS PERFORMED: Total laparoscopic hysterectomy, laparoscopic bilateral salpingo-oophorectomy, Solyx TVT, and cystoscopy. POWER ELECTRONICS RESEARCH ENGINEER: ANTONIO Foster ANESTHESIA: General endotracheal intubation, Sebastian Benitez and Dr. Paulino. ESTIMATED BLOOD LOSS: For the entire procedure is 250 mL. COMPLICATIONS: None. FINDINGS: Uterus about 12 week size. Both ovaries are essentially normal. INDICATION FOR SURGERY: [place] referred to the admit note. PROCEDURE IN DETAIL: The patient was brought to the OR, properly identified. After adequate level of general anesthesia, the patient placed in the lithotomy position with an access to the abdomen and the vagina. Shah catheter was placed in the bladder for drainage and then the colpotomizer manipulator was placed in the uterus for manipulation and appropriate balloon was inflated. Then, the operation shifted abdominally. Stab wound done beneath the umbilicus. The Veress needle was placed in the peritoneal cavity and that cavity insufflated with 3.5 liters of carbon dioxide and then utilizing the Visiport technique, a 5-mm trocar is entered infraumbilically without any problem. Then, the patient was placed in steep Trendelenburg and 10-12 trocar placed in the left iliac fossa and 5 mm trocar in the right iliac fossa and the inspection of the pelvis revealed the above-mentioned dictated finding. The operation started by identifying the landmark of the pelvis and using the Ld Harmonic scapula, the superior pedicle coagulated and transected. The tubes included with the specimen and the ovary preserved from both sides and then the round ligament coagulated and transected, and then the anterior leaf of the broad ligament dissected downward medially pushing the bladder away from the lower uterine segment and then the surgeon could easily feel the manipulator rings in the vagina. Then skeletonization of the uterine vessels and these vessel coagulated, transected at the level of the internal rings with the LD-7 Harmonic scapula. Once that done, then using the Ld Harmonic scapula circular incision in the vaginal mucosa was done detaching the cervix from its attachment to the vagina. The cervix and uterus and both tubes removed vaginally and pneumoperitoneum re-established by placing vaginal pack in the vagina and then the vaginal cuff was closed with 2-0 PDS interrupted [id number] sutures. Once we did that, a thorough irrigation of the pelvis shows no oozing, no bleeding. Then the operation shifted abdominally and then after infiltrating the vaginal area beneath the urethra with a copious amount of normal saline, it is incised with electrocautery and dissected laterally in a tunneling fashion making room for the Solyx TVT. Then, the Solyx TVT placed in place with a due amount of tension to elevate the urethrovesical angle and then the vaginal cuff was closed with 2-0 Vicryl interlocking for hemostasis. While we were doing that, we asked the anesthesiologist to give the patient fluorescein and then cystoscopy was performed. The bladder was intact. Both ureteric orifices were seen with the dye coming from both of them. Thus, the patency of both ureters verified. Satisfied with these findings, the procedure ended. The laparoscopic incision is closed in layer. The instrument, hardware, and count was correct. The patient tolerated the procedure well went to recovery room in stable general condition. GRAHAM / MARQUES /[id number]
[2017-12-20] MEDS ORDERED: Losartan 50 MG Tab PO SCH (22:09)
[2017-12-20] MEDS: Acetaminophen 325 MG Tab PO PRN (22:17)
[2017-12-21] MEDS: Acetaminophen 325 MG Tab PO PRN ×2 (05:42→08:53)
[2017-12-21 05:54] LABS: CHLORIDE,CL 106 mmol/L (98-107); SODIUM,NA 139 mmol/L (136-145)
--- NOTE | 2017-12-21 09:16 | PCM.SURGPN ---
- General Info Date of Service: 12/21/17 POD#: 1 Functional Status: Reports: Pain Controlled - Review of Systems General: Reports: No Symptoms HEENT: Reports: No Symptoms Pulmonary: Reports: No Symptoms Cardiovascular: Reports: No Symptoms Gastrointestinal: Reports: No Symptoms Genitourinary: Reports: No Symptoms Musculoskeletal: Reports: No Symptoms Skin: Reports: No Symptoms Neurological: Reports: No Symptoms Psychiatric: Reports: No Symptoms - Patient Data Vitals - Most Recent: Last Vital Signs Temp 37.6 C 12/21/17 08:00 Pulse 97 12/21/17 08:00 Resp 18 12/21/17 08:00 BP 144/94 H 12/21/17 08:00 Pulse Ox 95 12/21/17 08:00 Weight - Most Recent: 77.564 kg I&O - Last 24 Hours: Intake & Output 12/20/17 12/21/17 12/21/17 22:59 06:59 14:59 Intake Total 300 1550 Output Total 0 1600 Balance 300 -50 Lab Results Last 24 Hrs: Laboratory Results - last 24 hr 12/20/17 12/21/17 12/21/17 Range/Units 08:47 05:10 05:10 WBC 10.05 (4.0-11.0) K/uL RBC 4.45 (4.30-5.90) M/uL Hgb 8.9 L (12.0-16.0) g/dL Hct 29.2 L (36.0-46.0) % MCV 65.6 L (80.0-98.0) fL MCH 20.0 L (27.0-32.0) pg MCHC 30.5 L (31.0-37.0) g/dL RDW Std Deviation 61.5 (28.0-62.0) fl RDW Coeff of Radha 27 H (11.0-15.0) % Plt Count 188 (150-400) K/uL Neut % (Auto) 74.2 (48.0-80.0) % Lymph % (Auto) 17.7 (16.0-40.0) % Leslie % (Auto) 7.9 (0.0-15.0) % Eos % (Auto) 0.0 (0.0-7.0) % Baso % (Auto) 0.2 (0.0-1.5) % Neut # (Auto) 7.5 H (1.4-5.7) K/uL Lymph # (Auto) 1.8 (0.6-2.4) K/uL Leslie # (Auto) 0.8 (0.0-0.8) K/uL Eos # (Auto) 0.0 (0.0-0.7) K/uL Baso # (Auto) 0.0 (0.0-0.1) K/uL Nucleated RBC % 0.0 /100WBC Nucleated RBCs # 0 K/uL Sodium 139 (136-145) mmol/L Potassium 3.7 (3.5-5.1) mmol/L Chloride 106 (98-107) mmol/L Carbon Dioxide 24.8 (21.0-32.0) mmol/L BUN 8 (7.0-18.0) mg/dL Creatinine 0.8 (0.6-1.0) mg/dL Est Cr Clr Drug Dosing 84.09 mL/min Estimated GFR (MDRD) > 60.0 ml/min Glucose 113 H (74-106) mg/dL Calcium 9.3 (8.5-10.1) mg/dL Blood Type B POSITIVE Antibody Screen NEGATIVE Med Orders - Current: Current Medications Acetaminophen (Tylenol) 650 mg PO Q4H PRN PRN Reason: Pain Last Admin: 12/21/17 08:53 Dose: 650 mg Lactated Ringer's (Ringers, Lactated) 1,000 mls @ 125 mls/hr IV ASDIRECTED [facility] Last Admin: 12/20/17 13:19 Dose: 125 mls/hr Ketorolac Tromethamine (Toradol) 30 mg IVPUSH Q6H PRN PRN Reason: Pain (severe 7-10) Stop: 12/25/17 12:07 Losartan Potassium (Cozaar) 100 mg PO BEDTIME [facility] Last Admin: 12/20/17 22:17 Dose: 100 mg Morphine Sulfate (Morphine) 4 mg IVPUSH Q2H PRN PRN Reason: Pain (severe 7-10) Ondansetron HCl (Zofran) 4 mg IVPUSH Q6H PRN PRN Reason: Nausea/Vomiting Last Admin: 12/20/17 21:32 Dose: 4 mg Oxycodone/Acetaminophen (Percocet 325-5 Mg) 1 tab PO Q4H PRN PRN Reason: Pain (moderate 4-6) Oxycodone/Acetaminophen (Percocet 325-5 Mg) 2 tab PO Q4H PRN PRN Reason: Pain (moderate 4-6) Last Admin: 12/20/17 13:32 Dose: 2 tab Promethazine HCl (Phenergan) 25 mg IM Q6H PRN PRN Reason: Nausea/Vomiting Sodium Chloride (Saline Flush) 10 ml FLUSH ASDIRECTED PRN PRN Reason: Keep Vein Open Sodium Chloride (Saline Flush) 2.5 ml FLUSH ASDIRECTED PRN PRN Reason: Keep Vein Open Discontinued Medications Cefazolin Sodium (Ancef) Confirm Administered Dose 2 gm .ROUTE .STK-MED ONE Stop: 12/20/17 10:47 Dexamethasone (Dexamethasone) Confirm Administered Dose 20 mg .ROUTE .STK-MED ONE Stop: 12/20/17 10:34 Diphenhydramine HCl (Benadryl) Confirm Administered Dose 50 mg .ROUTE .STK-MED ONE Stop: 12/20/17 10:34 Fentanyl (Sublimaze) Confirm Administered Dose 250 mcg .ROUTE .STK-MED ONE Stop: 12/20/17 10:22 Fentanyl (Sublimaze) Confirm Administered Dose 100 mcg .ROUTE .STK-MED ONE Stop: 12/20/17 12:08 Fentanyl (Sublimaze) 50 mcg IVPUSH Q5M PRN PRN Reason: Pain Last Admin: 12/20/17 12:54 Dose: 50 mcg Fluorescein Sodium (Ak-Fluor) Confirm Administered Dose 5 ml .ROUTE .STK-MED ONE Stop: 12/20/17 10:00 Glycopyrrolate (Robinul) Confirm Administered Dose 0.2 mg .ROUTE .STK-MED ONE Stop: 12/20/17 10:22 Cefazolin Sodium/Dextrose 2 gm (/ Premix) 50 mls @ 100 mls/hr IV ONETIME ONE Stop: 12/19/17 09:11 Last Admin: 12/20/17 15:41 Dose: Not Given Acetaminophen 1,000 mg/ Premix 100 mls @ 400 mls/hr IV NOW ONE Stop: 12/20/17 12:37 Last Admin: 12/20/17 12:37 Dose: 400 mls/hr Ketorolac Tromethamine (Toradol) Confirm Administered Dose 30 mg .ROUTE .STK- MED ONE Stop: 12/20/17 10:22 Ketorolac Tromethamine (Toradol) 30 mg IVPUSH ONETIME ONE Stop: 12/20/17 12:08 Last Admin: 12/20/17 15:42 Dose: Not Given Lidocaine (Xylocaine-Mpf 2%) Confirm Administered Dose 5 ml .ROUTE .STK-MED ONE Stop: 12/20/17 10:22 Midazolam HCl (Versed 1 Mg/Ml) Confirm Administered Dose 2 mg .ROUTE .STK-MED ONE Stop: 12/20/17 10:22 Octyl Cyanoacrylate (Dermabond Advance) Confirm Administered Dose 1 applic .ROUTE .STK-MED ONE Stop: 12/20/17 11:37 Ondansetron HCl (Zofran) Confirm Administered Dose 4 mg .ROUTE .STK-MED ONE Stop: 12/20/17 10:22 Propofol (Diprivan 20 Ml) Confirm Administered Dose 200 mg .ROUTE .STK-MED ONE Stop: 12/20/17 10:22 - Exam Wound/Incisions: Healing Well General: Alert, Oriented HEENT: Pupils Equal Neck: Supple Lungs: Clear to Auscultation, Normal Respiratory Effort Cardiovascular: Regular Rate, Regular Rhythm GI/Abdominal Exam: Normal Bowel Sounds, Soft, Non-Tender, No Organomegaly, No Distention, No Abnormal Bruit, No Mass, Pelvis Stable Extremities: Normal Inspection, Normal Range of Motion, Non-Tender, No Pedal Edema, Normal Capillary Refill Skin: Warm, Dry, Intact Neurological: No New Focal Deficit Psy/Mental Status: Alert, Normal Affect, Normal Mood - Problem List Review Problem List Initiated/Reviewed/Updated: Yes - My Orders Last 24 Hours: Active Orders 24 hr Category Date Time Status Patient Status [ADT] Routine ADT 12/20/17 12:07 Active Notify Provider Vital Signs [RC] ASDIRECTED Care 12/20/17 12:07 Active Oxygen Therapy [RC] ASDIRECTED Care 12/20/17 12:07 Active RT Incentive Spirometry [RC] Q2HWA Care 12/20/17 12:07 Active Up With Assistance [RC] PER UNIT ROUTINE Care 12/20/17 12:07 Active Up ad Christen [RC] PER UNIT ROUTINE Care 12/20/17 12:07 Active Vital Signs [RC] PER UNIT ROUTINE Care 12/20/17 12:07 Active Regular Diet [DIET] Diet 12/20/17 Dinner Active Acetaminophen [Tylenol] Med 12/20/17 22:10 Active 650 mg PO Q4H PRN Acetaminophen/oxyCODONE [Percocet 325-5 MG] Med 12/20/17 12:07 Active 1 tab PO Q4H PRN Acetaminophen/oxyCODONE [Percocet 325-5 MG] Med 12/20/17 12:07 Active 2 tab PO Q4H PRN Ketorolac [Toradol] Med 12/20/17 12:07 Active 30 mg IVPUSH Q6H PRN Losartan [Cozaar] Med 12/20/17 22:09 Active 100 mg PO BEDTIME Morphine Med 12/20/17 12:07 Active 4 mg IVPUSH Q2H PRN Ondansetron [Zofran] Med 12/20/17 12:07 Active 4 mg IVPUSH Q6H PRN Promethazine [Phenergan] Med 12/20/17 12:07 Active 25 mg IM Q6H PRN Peripheral IV Discontinue [OM.PC] Routine Oth 12/20/17 12:07 Ordered Sequential Compression Device [OM.PC] Per Unit Routine Oth 12/20/17 12:07 Ordered Resuscitation Status Routine Resus Stat 12/20/17 12:07 Ordered Medication Orders Acetaminophen (Tylenol) 650 mg PO Q4H PRN PRN Reason: Pain Last Admin: 12/21/17 08:53 Dose: 650 mg Admin: 12/21/17 05:42 Dose: 650 mg Admin: 12/20/17 22:17 Dose: 650 mg Lactated Ringer's (Ringers, Lactated) 1,000 mls @ 125 mls/hr IV ASDIRECTED POPPY Last Admin: 12/20/17 13:19 Dose: 125 mls/hr Infusion: 12/20/17 13:19 Dose: 125 mls/hr Admin: 12/20/17 08:48 Dose: 125 mls/hr Ketorolac Tromethamine (Toradol) 30 mg IVPUSH Q6H PRN PRN Reason: Pain (severe 7-10) Stop: 12/25/17 12:07 Losartan Potassium (Cozaar) 100 mg PO BEDTIME [facility] Last Admin: 12/20/17 22:17 Dose: 100 mg Morphine Sulfate (Morphine) 4 mg IVPUSH Q2H PRN PRN Reason: Pain (severe 7-10) Ondansetron HCl (Zofran) 4 mg IVPUSH Q6H PRN PRN Reason: Nausea/Vomiting Last Admin: 12/20/17 21:32 Dose: 4 mg Oxycodone/Acetaminophen (Percocet 325-5 Mg) 1 tab PO Q4H PRN PRN Reason: Pain (moderate 4-6) Oxycodone/Acetaminophen (Percocet 325-5 Mg) 2 tab PO Q4H PRN PRN Reason: Pain (moderate 4-6) Last Admin: 12/20/17 13:32 Dose: 2 tab Promethazine HCl (Phenergan) 25 mg IM Q6H PRN PRN Reason: Nausea/Vomiting Sodium Chloride (Saline Flush) 10 ml FLUSH ASDIRECTED PRN PRN Reason: Keep Vein Open Sodium Chloride (Saline Flush) 2.5 ml FLUSH ASDIRECTED PRN PRN Reason: Keep Vein Open - Assessment Assessment (Free Text/Narrative):: Status post TL H and TVT for bleeding and strokes urinary incontinence patient postoperative day she is doing well she is afebrile lab work within normal limit there is no vaginal bleeding the patient is voiding without any problem on regular diet and passing gas. - Plan Plan (Free Text/Narrative):: The patient to be discharged today the postvasectomy instruction is given to the patient prescription of Fiorinal 50 mg by mouth is given to her for postoperative pain the patient have an appointment for follow-up in 10 day
== END 2017-12-21 10:48 | disposition home or self-care (01) ==
LOC: MW.SDS 08:27 → MW.MS 12:07 → MW.SDS 12-21 10:48
PROVIDERS: ATTEND Obstetrics & Gynecology
DX: N88.8 Other specified noninflammatory disorders of cervix uteri (principal); N83.8 Other noninflammatory disorders of ovary, fallopian tube and broad ligament; N80.0 Endometriosis of uterus; N39.3 Stress incontinence (female) (male); N92.1 Excessive and frequent menstruation with irregular cycle; I10 Essential (primary) hypertension; E66.9 Obesity, unspecified; Z68.28 Body mass index [BMI] 28.0-28.9, adult; K21.9 Gastro-esophageal reflux disease without esophagitis; D50.9 Iron deficiency anemia, unspecified; Z79.899 Other long term (current) drug therapy; Z91.048 Other nonmedicinal substance allergy status; Z88.8 Allergy status to other drugs, medicaments and biological substances; Z88.5 Allergy status to narcotic agent; Z91.018 Allergy to other foods; Z91.040 Latex allergy status
CPT/HCPCS: 36415; 57288; 58552; 80048; 84703; 85025; 85027; 86850; 86900; 86901; A9270; J0690; J1100; J1200; J1885; J2250; J2405; J3010; J7120; 88307; J2704

== ENCOUNTER 2017-12-29 09:34 | Emergency (ER) | payer OTHER ==
--- NOTE | 2017-12-29 09:49 | EDM.PDOC ---
ED HPI GENERAL MEDICAL PROBLEM - General Chief Complaint: Genitourinary Problem Stated Complaint: DIFFICULTY URINATING Time Seen by Provider: 12/29/17 09:41 Source of Information: Reports: Patient History Limitations: Reports: No Limitations - History of Present Illness INITIAL COMMENTS - FREE TEXT/NARRATIVE: History of present illness: []Patient status post hysterectomy on December 20 by , she has been unable to urinate since last night and feels pressure in her bladder that is painful. She denies any fevers or chills and states that she has not been drinking much fluid because she is very worried about filling her bladder. Patient has not had any vomiting or diarrhea or other complaints. Review of systems: As per history of present illness and below otherwise all systems reviewed and negative. Past medical history: As per history of present illness and as reviewed below otherwise noncontributory. Surgical history: As per history of present illness and as reviewed below otherwise noncontributory. Social history: No reported history of drug or alcohol abuse. Family history: As per history of present illness and as reviewed below otherwise noncontributory. Physical exam: General: Well developed, well nourished ,very anxious and angry stating that it is secondary to pain HEENT: Atraumatic, normocephalic, pupils reactive, negative for conjunctival pallor or scleral icterus, mucous membranes moist, throat clear, neck supple, nontender, trachea midline. Lungs: Clear to auscultation, breath sounds equal bilaterally, chest nontender. Heart: S1S2, regular, negative for clicks, rubs, or JVD. Abdomen: Soft, distended tender in suprapubic area without rebound or guarding. Negative for masses or hepatosplenomegaly. Negative for costovertebral tenderness. Pelvis: Stable nontender. Genitourinary: Deferred. Rectal: Deferred. Extremities: Atraumatic, negative for cords or calf pain. Neurovascular unremarkable. Neuro: Awake, alert, oriented. Cranial nerves II through XII unremarkable. Cerebellum unremarkable. Motor and sensory unremarkable throughout. Exam nonfocal. Diagnostics: []Bladder scan showed and 360 mils of urine, UA negative Therapeutics: []Shah placed Impression: []Urinary hesitancy Plan: Increase fluids follow-up with Dr. Benoit return if symptoms worsen or change Definitive disposition and diagnosis as appropriate pending reevaluation and review of above. lower abdominal Pain Score (Numeric/FACES): 7 - Related Data Allergies Allergy/AdvReac Type Severity Reaction Status Date / Time adhesive Allergy Hives Verified 12/29/17 09:49 latex Allergy Hives Verified 12/29/17 09:49 morphine Allergy Anaphylactic Verified 12/29/17 09:49 Shock povidone-iodine Allergy Hives Verified 12/29/17 09:49 [From Betadine] soap [From Betadine] Allergy Hives Verified 12/29/17 09:49 Home Meds: Home Meds Losartan [Cozaar] 100 mg PO BEDTIME 12/07/17 [History] Acetaminophen [Tylenol] 650 mg PO Q4H PRN tablet 12/08/17 [Rx] Amoxicillin [IJD: Amoxicillin] 1,000 mg PO Q12HR 14 Days #56 capsule 12/08/17 [ Rx] Clarithromycin [Biaxin] 500 mg PO BID 14 Days #28 tablet 12/08/17 [Rx] Ferrous Sulfate 325 mg PO TIDMEALS 60 Days #180 tablet 12/08/17 [Rx] Pantoprazole [ProTONIX] 40 mg PO BIDAC 30 Days #60 tab.cr 12/08/17 [Rx] Sucralfate [Carafate] 1 gm PO Q6H 30 Days #2 cup 12/08/17 [Rx] Past Medical History HEENT History: Reports: Other (See Below) Other HEENT History: wears glasses, has top and bottom dentures Cardiovascular History: Reports: Hypertension Respiratory History: Reports: None Gastrointestinal History: Reports: GERD Genitourinary History: Reports: Renal Calculus ANTHROPOLOGIST History: Reports: Musculoskeletal History: Reports: None Neurological History: Reports: None Psychiatric History: Reports: Anxiety Endocrine/Metabolic History: Reports: None Hematologic History: Reports: Anemia, Blood Transfusion(s) Immunologic History: Reports: None Oncologic (Cancer) History: Reports: None Dermatologic History: Reports: None - Infectious Disease History Infectious Disease History: Reports: None - Past Surgical History Head Surgeries/Procedures: Reports: None GI Surgical History: Reports: Bariatric Procedure Female Surgical History: Reports: Tubal Ligation Neurological Surgical History: Reports: None Social & Family History - Family History Family Medical History: Noncontributory Cardiac: Reports: Other (See Below) Other Cardiac Family History: Heart Disease Endocrine/Metabolic: Reports: Diabetes, type II Oncologic: Reports: Other (See Below) Other Oncologic Family History: Cancer - Caffeine Use Caffeine Use: Reports: None ED ROS GENERAL - Review of Systems Review Of Systems: See Below (See history of present illness) ED EXAM, RENAL/ - Physical Exam Exam: See Below Course - Vital Signs Last Recorded V/S: Last Vital Signs Temp 97.2 F 12/29/17 09:52 Pulse 111 H 12/29/17 09:52 Resp 18 12/29/17 09:52 BP 144/102 H 12/29/17 09:52 Pulse Ox 97 12/29/17 09:52 - Orders/Labs/Meds Orders: Active Orders 24 hr Category Date Time Status Bladder Scan [RC] ONETIME Care 12/29/17 09:54 Active UA W/MICROSCOPIC [URIN] Stat Lab 12/29/17 10:20 Ordered Labs: Laboratory Tests 12/29/17 Range/Units 10:20 Urine Color YELLOW Urine Appearance CLEAR Urine pH 6.0 (5.0-8.0) Ur Specific [place] 1.010 (1.001-1.035) Urine Protein NEGATIVE (NEGATIVE) mg/dL Urine Glucose (UA) NEGATIVE (NEGATIVE) mg/dL Urine Ketones NEGATIVE (NEGATIVE) mg/dL Urine Occult Blood NEGATIVE (NEGATIVE) Urine Nitrite NEGATIVE (NEGATIVE) Urine Bilirubin NEGATIVE (NEGATIVE) Urine Urobilinogen 0.2 (<2.0) EU/dL Ur Leukocyte Esterase NEGATIVE (NEGATIVE) Urine RBC NONE SEEN (0-2/HPF) Urine WBC 0-1 (0-5/HPF) Ur Epithelial Cells FEW (NONE-FEW) Urine Bacteria FEW (NEGATIVE) Meds: Medications Discontinued Medications Generic Name Dose Route Start Last Admin Trade Name Freq PRN Reason Stop Dose Admin Ketorolac Tromethamine 60 mg 12/29/17 09:55 12/29/17 10:27 Toradol IM 12/29/17 09:56 60 mg ONETIME ONE Administration Lorazepam 1 mg 12/29/17 09:55 12/29/17 10:30 Ativan PO 12/29/17 09:56 Not Given ONETIME ONE Departure - Departure Time of Disposition: 10:45 Disposition: Home, Self-Care 01 Condition: Good Clinical Impression: Urinary hesitancy - Discharge Information Referrals: PCP,Unknown [Primary Care Provider] - Forms: ED Department Discharge Additional Instructions: The following information is given to patients seen in the emergency department who are being discharged to home. This information is to outline your options for follow-up care. We provide all patients seen in our emergency department with a follow-up referral. The need for follow-up, as well as the timing and circumstances, are variable depending upon the specifics of your emergency department visit. If you don't have a primary care physician on staff, we will provide you with a referral. We always advise you to contact your personal physician following an emergency department visit to inform them of the circumstance of the visit and for follow-up with them and/or the need for any referrals to a consulting specialist. The emergency department will also refer you to a specialist when appropriate. This referral assures that you have the opportunity for follow-up care with a specialist. All of these measure are taken in an effort to provide you with optimal care, which includes your follow-up. Under all circumstances we always encourage you to contact your private physician who remains a resource for coordinating your care. When calling for follow-up care, please make the office aware that this follow-up is from your recent emergency room visit. If for any reason you are refused follow-up, please contact the [facility] Emergency Department at and asked to speak to the emergency department charge nurse. Increase fluids until urine is clear follow-up with primary care or Dr. Lott, return to ER if symptoms worsen or change - My Orders Last 24 Hours: My Active Orders 12/29/17 09:54 Bladder Scan [RC] ONETIME 12/29/17 10:20 UA W/MICROSCOPIC [URIN] Stat - Assessment/Plan Last 24 Hours: My Active Orders 12/29/17 09:54 Bladder Scan [RC] ONETIME 12/29/17 10:20 UA W/MICROSCOPIC [URIN] Stat
[2017-12-29] MEDS ORDERED: Ketorolac 60 MG/2 ML SDV IM ONE (09:55)
[2017-12-29] MEDS: LORazepam 1 MG Tab PO ONE ×2 (10:29→10:30)
== END 2017-12-29 10:55 | disposition home or self-care (01) ==
LOC: MW.ED 09:34
DX: R39.11 Hesitancy of micturition (principal); K21.9 Gastro-esophageal reflux disease without esophagitis; I10 Essential (primary) hypertension; F41.9 Anxiety disorder, unspecified; Z79.899 Other long term (current) drug therapy; Z87.442 Personal history of urinary calculi; D64.9 Anemia, unspecified; Z88.8 Allergy status to other drugs, medicaments and biological substances; Z88.5 Allergy status to narcotic agent; Z91.040 Latex allergy status
CPT/HCPCS: 81001; 96372; 99284; J1885; 99283; A9270-GY

== ENCOUNTER 2018-01-03 15:43 | Emergency (ER) | payer OTHER ==
--- NOTE | 2018-01-03 16:34 | EDM.PDOC ---
ED HPI GENERAL MEDICAL PROBLEM - General Chief Complaint: Flank Pain Stated Complaint: ABDOMINAL PAIN Time Seen by Provider: 01/03/18 16:00 Source of Information: Reports: Patient History Limitations: Reports: No Limitations - History of Present Illness INITIAL COMMENTS - FREE TEXT/NARRATIVE: HISTORY AND PHYSICAL: History of present illness: 42-year-old female presenting to emergency department with chief complaint of bilateral flank pain with past medical history of nephrolithiasis and hypertension. Patient states that yesterday she began have some bilateral flank pain and this morning while urinating she thinks that she passed a small stone. She is had continued bilateral flank pain right worse than left 6 out of 10 at this moment with some radiation anteriorly. Patient states that she has not had any dysuria , hematuria, or signs of infection including but not limited to fever, chills, nausea, vomiting, diarrhea. She does report a history of nephrolithiasis approximate 6-7 years ago at which time she passed multiple stones. She has not had subsequent episodes since. She does report drinking plenty of water and keeping hydrated. She does report a history of bariatric surgery and recently had a history by Dr. Lott here in [place]. Soon after hysterectomy she was seen in our ER for urinary hesitancy. She currently denies any chest pain, palpitations, shortness breath, syncopal episodes, focal neurologic deficits. Review of systems: As per history of present illness and below otherwise all systems reviewed and negative. Past medical history: As per history of present illness and as reviewed below otherwise noncontributory. Surgical history: As per history of present illness and as reviewed below otherwise noncontributory. Social history: No reported history of drug or alcohol abuse. Family history: As per history of present illness and as reviewed below otherwise noncontributory. Physical exam: HEENT: Atraumatic, normocephalic, pupils reactive, negative for conjunctival pallor or scleral icterus, mucous membranes moist, throat clear, neck supple, nontender, trachea midline. Lungs: Clear to auscultation, breath sounds equal bilaterally, chest nontender. Heart: S1S2, regular, negative for clicks, rubs, or JVD. Abdomen: Soft, nondistended, nontender. Negative for masses or hepatosplenomegaly. bilateral costovertebral tenderness. Pelvis: Stable nontender. Genitourinary: Deferred. Rectal: Deferred. Extremities: Atraumatic, negative for cords or calf pain. Neurovascular unremarkable. Neuro: Awake, alert, oriented. Cranial nerves II through XII unremarkable. Cerebellum unremarkable. Motor and sensory unremarkable throughout. Exam nonfocal. Diagnostics: [CBC, CMP, UA/UC, hCG, CT abdomen pelvis] Therapeutics: [1 L LR, Tamsulosin, Buxton #12, Zofran Impression: [Nonobstructing nephrolithiasis Plan: Nonobstructing nephrolithiasis: CT results showed bilateral nonobstructing nephrolithiasis. Renal stones were relatively small and not worrisome for obstruction. This was communicated to the patient. She has no signs or symptoms of infection or obstruction. CBC, CMP, and UA were unremarkable. Patient was advised to collect stones and watch for any signs of infection including but not limited to fever, chills, malaise, hematuria, increased pain. She is going to follow-up with her PCP Dr. Lynn. In addition I suggested the patient see a urologist for further examination of her nephrolithiasis and give any collected stones to her primary care provider or urologist. I also gave patient a prescription for tamsulosin 0.4 mg by mouth every day 4 weeks Buxton 5-325 #12 for pain and Zofran 4 mg by mouth 6 hours any future nausea. Patient was advised to follow-up as scheduled with her PCP and return to emergency department if she had any new or worsening symptoms. Patient was given a total of 3 for stone collection. Right Flank Pain Score (Numeric/FACES): 6 - Related Data Allergies Allergy/AdvReac Type Severity Reaction Status Date / Time adhesive Allergy Hives Verified 01/03/18 15:57 latex Allergy Hives Verified 01/03/18 15:57 morphine Allergy Anaphylactic Verified 01/03/18 15:57 Shock povidone-iodine Allergy Hives Verified 01/03/18 15:57 [From Betadine] soap [From Betadine] Allergy Hives Verified 01/03/18 15:57 Home Meds: Home Meds Losartan [Cozaar] 100 mg PO BEDTIME 12/07/17 [History] Acetaminophen [Tylenol] 650 mg PO Q4H PRN tablet 12/08/17 [Rx] Ferrous Sulfate 325 mg PO TIDMEALS 60 Days #180 tablet 12/08/17 [Rx] Pantoprazole [ProTONIX] 40 mg PO BIDAC 30 Days #60 tab.cr 12/08/17 [Rx] Past Medical History HEENT History: Reports: Other (See Below) Other HEENT History: wears glasses, has top and bottom dentures Cardiovascular History: Reports: Hypertension Respiratory History: Reports: None Gastrointestinal History: Reports: GERD Genitourinary History: Reports: Renal Calculus [employer] History: Reports: Musculoskeletal History: Reports: None Neurological History: Reports: None Psychiatric History: Reports: Anxiety Endocrine/Metabolic History: Reports: None Hematologic History: Reports: Anemia, Blood Transfusion(s) Immunologic History: Reports: None Oncologic (Cancer) History: Reports: None Dermatologic History: Reports: None - Infectious Disease History Infectious Disease History: Reports: None - Past Surgical History Head Surgeries/Procedures: Reports: None GI Surgical History: Reports: Bariatric Procedure Female Surgical History: Reports: Tubal Ligation Neurological Surgical History: Reports: None Social & Family History - Family History Family Medical History: Noncontributory Cardiac: Reports: Other (See Below) Other Cardiac Family History: Heart Disease Endocrine/Metabolic: Reports: Diabetes, type II Oncologic: Reports: Other (See Below) Other Oncologic Family History: Cancer - Tobacco Use Smoking Status *Q: Never Smoker - Caffeine Use Caffeine Use: Reports: Soda - Recreational Drug Use Recreational Drug Use: No ED ROS GENERAL - Review of Systems Review Of Systems: See Below ED EXAM, GENERAL - Physical Exam Exam: See Below Course - Vital Signs Last Recorded V/S: Last Vital Signs Temp 98.5 F 01/03/18 17:35 Pulse 75 01/03/18 17:35 Resp 16 01/03/18 17:35 BP 162/98 H 01/03/18 17:35 Pulse Ox 99 01/03/18 17:35 - Orders/Labs/Meds Orders: Active Orders 24 hr Category Date Time Status Abdomen Pelvis wo Cont [CT] Stat Exams 01/03/18 16:14 Taken CULTURE URINE [RM] Stat Lab 01/03/18 16:37 Received HCG QUALITATIVE,URINE [URCHEM] Stat Lab 01/03/18 16:37 Ordered UA W/MICROSCOPIC [URIN] Stat Lab 01/03/18 16:37 Ordered Labs: Laboratory Tests 01/03/18 01/03/18 01/03/18 Range/Units 16:11 16:11 16:37 WBC 10.75 (4.0-11.0) K/uL RBC 4.88 (4.30-5.90) M/uL Hgb 10.0 L (12.0-16.0) g/dL Hct 32.8 L (36.0-46.0) % MCV 67.2 L (80.0-98.0) fL MCH 20.5 L (27.0-32.0) pg MCHC 30.5 L (31.0-37.0) g/dL RDW Std Deviation 62.8 H (28.0-62.0) fl RDW Coeff of Radha 26 H (11.0-15.0) % Plt Count 264 (150-400) K/uL Neut % (Auto) 61.7 (48.0-80.0) % Lymph % (Auto) 27.7 (16.0-40.0) % [place] % (Auto) 7.0 (0.0-15.0) % Eos % (Auto) 3.0 (0.0-7.0) % Baso % (Auto) 0.6 (0.0-1.5) % Neut # (Auto) 6.6 H (1.4-5.7) K/uL Lymph # (Auto) 3.0 H (0.6-2.4) K/uL [place] # (Auto) 0.8 (0.0-0.8) K/uL Eos # (Auto) 0.3 (0.0-0.7) K/uL Baso # (Auto) 0.1 (0.0-0.1) K/uL Nucleated RBC % 0.0 /100WBC Nucleated RBCs # 0 K/uL Sodium 137 (136-145) mmol/L Potassium 4.4 (3.5-5.1) mmol/L Chloride 104 (98-107) mmol/L Carbon Dioxide 25.2 (21.0-32.0) mmol/L BUN 9 (7.0-18.0) mg/dL Creatinine 0.8 (0.6-1.0) mg/dL Est Cr Clr Drug Dosing 82.43 mL/min Estimated GFR (MDRD) > 60.0 ml/min Glucose 93 (74-106) mg/dL Calcium 9.1 (8.5-10.1) mg/dL Total Bilirubin 0.3 (0.2-1.0) mg/dL AST 18 (15-37) IU/L ALT 13 L (14-63) IU/L Alkaline Phosphatase 109 (46-116) U/L Total Protein 7.9 (6.4-8.2) g/dL Albumin 3.5 (3.4-5.0) g/dL Globulin 4.4 H (2.0-3.5) g/dL Albumin/Globulin Ratio 0.8 L (1.3-2.8) Urine Color YELLOW Urine Appearance SLT CLOUDY Urine pH 6.0 (5.0-8.0) Ur Specific [place] >= 1.030 (1.001-1.035) Urine Protein NEGATIVE (NEGATIVE) mg/dL Urine Glucose (UA) NEGATIVE (NEGATIVE) mg/dL Urine Ketones NEGATIVE (NEGATIVE) mg/dL Urine Occult Blood SMALL H (NEGATIVE) Urine Nitrite NEGATIVE (NEGATIVE) Urine Bilirubin NEGATIVE (NEGATIVE) Urine Urobilinogen 0.2 (<2.0) EU/dL Ur Leukocyte Esterase SMALL (NEGATIVE) Urine RBC 1-3 (0-2/HPF) Urine WBC 8-10 (0-5/HPF) Ur Epithelial Cells MANY (NONE-FEW) Urine Bacteria FEW (NEGATIVE) Urine Mucus MODERATE (NONE-MOD) Urine HCG, Qual (NEGATIVE) 01/03/18 Range/Units 16:37 WBC (4.0-11.0) K/uL RBC (4.30-5.90) M/uL Hgb (12.0-16.0) g/dL Hct (36.0-46.0) % MCV (80.0-98.0) fL MCH (27.0-32.0) pg MCHC (31.0-37.0) g/dL RDW Std Deviation (28.0-62.0) fl RDW Coeff of Radha (11.0-15.0) % Plt Count (150-400) K/uL Neut % (Auto) (48.0-80.0) % Lymph % (Auto) (16.0-40.0) % [place] % (Auto) (0.0-15.0) % Eos % (Auto) (0.0-7.0) % Baso % (Auto) (0.0-1.5) % Neut # (Auto) (1.4-5.7) K/uL Lymph # (Auto) (0.6-2.4) K/uL [place] # (Auto) (0.0-0.8) K/uL Eos # (Auto) (0.0-0.7) K/uL Baso # (Auto) (0.0-0.1) K/uL Nucleated RBC % /100WBC Nucleated RBCs # K/uL Sodium (136-145) mmol/L Potassium (3.5-5.1) mmol/L Chloride (98-107) mmol/L Carbon Dioxide (21.0-32.0) mmol/L BUN (7.0-18.0) mg/dL Creatinine (0.6-1.0) mg/dL Est Cr Clr Drug Dosing mL/min Estimated GFR (MDRD) ml/min Glucose (74-106) mg/dL Calcium (8.5-10.1) mg/dL Total Bilirubin (0.2-1.0) mg/dL AST (15-37) IU/L ALT (14-63) IU/L Alkaline Phosphatase (46-116) U/L Total Protein (6.4-8.2) g/dL Albumin (3.4-5.0) g/dL Globulin (2.0-3.5) g/dL Albumin/Globulin Ratio (1.3-2.8) Urine Color Urine Appearance Urine pH (5.0-8.0) Ur Specific [place] (1.001-1.035) Urine Protein (NEGATIVE) mg/dL Urine Glucose (UA) (NEGATIVE) mg/dL Urine Ketones (NEGATIVE) mg/dL Urine Occult Blood (NEGATIVE) Urine Nitrite (NEGATIVE) Urine Bilirubin (NEGATIVE) Urine Urobilinogen (<2.0) EU/dL Ur Leukocyte Esterase (NEGATIVE) Urine RBC (0-2/HPF) Urine WBC (0-5/HPF) Ur Epithelial Cells (NONE-FEW) Urine Bacteria (NEGATIVE) Urine Mucus (NONE-MOD) Urine HCG, Qual NEGATIVE (NEGATIVE) Meds: Medications Discontinued Medications Generic Name Dose Route Start Last Admin Trade Name Freq PRN Reason Stop Dose Admin Lactated Ringer's 1,000 mls @ 999 mls/hr 01/03/18 16:35 01/03/18 16:39 Ringers, Lactated IV 01/03/18 17:35 999 mls/hr .BOLUS ONE Administration Departure - Departure Time of Disposition: 18:33 Disposition: Home, Self-Care 01 Condition: Good Clinical Impression: Nephrolithiasis - Discharge Information Referrals: PCP,None [Primary Care Provider] - Forms: ED Department Discharge Additional Instructions: My general discharge The following information is given to patients seen in the emergency department who are being discharged to home. This information is to outline your options for follow-up care. We provide all patients seen in our emergency department with a follow-up referral. The need for follow-up, as well as the timing and circumstances, are variable depending upon the specifics of your emergency department visit. If you don't have a primary care physician on staff, we will provide you with a referral. We always advise you to contact your personal physician following an emergency department visit to inform them of the circumstance of the visit and for follow-up with them and/or the need for any referrals to a consulting specialist. The emergency department will also refer you to a specialist when appropriate. This referral assures that you have the opportunity for follow-up care with a specialist. All of these measure are taken in an effort to provide you with optimal care, which includes your follow-up. Under all circumstances we always encourage you to contact your private physician who remains a resource for coordinating your care. When calling for follow-up care, please make the office aware that this follow-up is from your recent emergency room visit. If for any reason you are refused follow-up, please contact the [facility] Emergency Department at and asked to speak to the emergency department charge nurse. [facility] [address] [place] [id number] [facility] Specialty Care - Urology [address] [place] [phone] - My Orders Last 24 Hours: My Active Orders 01/03/18 16:14 Abdomen Pelvis wo Cont [CT] Stat 01/03/18 16:37 CULTURE URINE [RM] Stat HCG QUALITATIVE,URINE [URCHEM] Stat UA W/MICROSCOPIC [URIN] Stat - Assessment/Plan Last 24 Hours: My Active Orders 01/03/18 16:14 Abdomen Pelvis wo Cont [CT] Stat 01/03/18 16:37 CULTURE URINE [RM] Stat HCG QUALITATIVE,URINE [URCHEM] Stat UA W/MICROSCOPIC [URIN] Stat
[2018-01-03] MEDS ORDERED: Lactated Ringers 1,000 ML IV ONE (16:35)
[2018-01-03 16:44] LABS: CHLORIDE,CL 104 mmol/L (98-107); SODIUM,NA 137 mmol/L (136-145)
--- NOTE | 2018-01-04 09:54 | CT ---
EXAM DATE: 01/03/18 PATIENT'S AGE: 42 Patient: ANDREINA WHITTEN Facility: [place], [place] Site . Site : [id number] Study: CT Abdomen/Pelvis wo cont [id number] 5:27:47 PM Ordering Physician: Red Wise Final Report: INDICATION: Bilateral flank pain TECHNIQUE: CT abdomen and pelvis without contrast. COMPARISON: 12/08/2017 FINDINGS: Lower chest: Unremarkable. Liver: Normal in size and attenuation. No masses. Gallbladder and bile ducts: No stones or inflammation. No biliary dilatation. Pancreas: Unremarkable. No mass or inflammation. Spleen: Normal in size. No masses. Adrenal glands: Normal in size. No nodules. Kidneys: There are several relatively small nonobstructive bilateral renal stones. No hydronephrosis or perinephric edema. GI tract: Roya-en-Y gastric bypass changes appear unremarkable. Remainder of the GI tract and appendix are unremarkable as well. Vasculature: Unremarkable. Lymph nodes: No lymphadenopathy. Abdominal wall/Omentum/Peritoneum: Unremarkable. No sign of mass or infiltration. No free air or significant free fluid. Pelvis: Fat stranding in the pelvis is consistent with recent surgery from a hysterectomy. Bones: Unremarkable for age. IMPRESSION: Bilateral nonobstructive nephrolithiasis. Postoperative changes from recent hysterectomy appear within normal limits. No other acute or specific finding to explain flank pain. Please note that all CT scans at this facility use dose modulation, iterative reconstruction, and/or weight-based dosing when appropriate to reduce radiation dose to as low as reasonably achievable. Dictated by Nitesh Gómez MD @ Jan 03 2018 5:39PM (Electronic Signature) Report Signed by Proxy. [facility]
== END 2018-01-03 19:01 | disposition home or self-care (01) ==
LOC: MW.ED 15:43
DX: N20.0 Calculus of kidney (principal); I10 Essential (primary) hypertension; Z88.8 Allergy status to other drugs, medicaments and biological substances; Z91.040 Latex allergy status; Z88.5 Allergy status to narcotic agent; Z91.048 Other nonmedicinal substance allergy status; Z79.899 Other long term (current) drug therapy
CPT/HCPCS: 36415; 74176; 80053; 81001; 81025; 85025; 87086; 96360; 99284; J7120

== ENCOUNTER 2018-01-24 07:29 | Day surgery (SDC) | payer OTHER ==
[~2018-01-24 07:29] MED LIST changes: +Lactated Ringers 1,000 ML IV SCH; -Sugammadex Sodium 200 MG/2 ML VIAL ONE; +ceFAZolin 1 GM Vial IV ONE; -ceFAZolin 2 GM in Premix Bag 1 BAG IV ONE
[2018-01-24] MEDS ORDERED: Lidocaine 2% 5 ML SDV ONE (08:13)
[2018-01-24] MEDS ORDERED: Midazolam 1 MG/ML 2 ML SDV ONE (08:14)
[2018-01-24] MEDS ORDERED: Propofol 200 MG/20 ML SDV ONE (08:14)
[2018-01-24] MEDS ORDERED: fentaNYL 250 MCG/5 ML SDV ONE (08:14)
[2018-01-24] MEDS ORDERED: Neostigmine Methylsulfate 1 MG/ML 5 ML Syringe ONE (08:20)
[2018-01-24] MEDS ORDERED: Rocuronium 10 MG/ML 10 ML Syringe ONE (08:20)
[2018-01-24] MEDS ORDERED: Glycopyrrolate 0.2 MG/ML SDV ONE (08:20)
--- NOTE | 2018-01-24 08:25 | PCM.PREANE ---
Preanesthetic Assessment - Anesthesia/Transfusion/Family Hx Anesthesia History: Prior Anesthesia Without Reaction Family History of Anesthesia Reaction: No Transfusion History: Prior Transfusion Without Reaction - Review of Systems General: No Symptoms Pulmonary: No Symptoms Cardiovascular: No Symptoms Gastrointestinal: No Symptoms Neurological: No Symptoms Other: Reports: None - Physical Assessment NPO Status Date: 01/23/18 Height: 1.65 m Weight: 76.204 kg ASA Class: 2 Mental Status: Alert & Oriented x3 Airway Class: Mallampati = 1 Dentition: Reports: Dentures ROM/Head Extension: Full Lungs: Clear to Auscultation, Normal Respiratory Effort Cardiovascular: Regular Rate, Regular Rhythm - Allergies Allergies/Adverse Reactions: Allergies Allergy/AdvReac Type Severity Reaction Status Date / Time adhesive Allergy Hives Verified 01/23/18 07:35 latex Allergy Hives Verified 01/23/18 07:35 morphine Allergy Anaphylactic Verified 01/23/18 07:35 Shock povidone-iodine Allergy Hives Verified 01/23/18 07:35 [From Betadine] soap [From Betadine] Allergy Hives Verified 01/23/18 07:35 - Anesthesia Plan Pre-Op Medication Ordered: None - Acknowledgements Anesthesia Type Planned: General Anesthesia Pt an Appropriate Candidate for the Planned Anesthesia: Yes Alternatives and Risks of Anesthesia Discussed w Pt/Guardian: Yes Pt/Guardian Understands and Agrees with Anesthesia Plan: Yes Additional Comments: PMH: gerd, HTN, migraine, YOBANI, is on Tramadol Pt denies hypercoaguable disorder, and denies easy bleeding, no vonwillebrands. Had vag bleeding prior to hysterectomy but no other evidance of bleeding disorder. 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: Musculoskeletal History: Reports: None Neurological History: Reports: Migraines Psychiatric History: Reports: Anxiety Endocrine/Metabolic History: Reports: None Hematologic History: Reports: Anemia, Blood Transfusion(s) Immunologic History: Reports: None Oncologic (Cancer) History: Reports: None Dermatologic History: Reports: None - Infectious Disease History Infectious Disease History: Reports: None - Past Surgical History Head Surgeries/Procedures: Reports: None HEENT Surgical History: Reports: None Cardiovascular Surgical History: Reports: None Respiratory Surgical History: Reports: None GI Surgical History: Reports: Bariatric Procedure Female Surgical History: Reports: Hysterectomy, Lithotripsy/ESWL, Salpingo- Oophorectomy, Tubal Ligation Other Female Surgeries/Procedures: total hysterectomy with bladder sling December 20, 2017 Endocrine Surgical History: Reports: None Neurological Surgical History: Reports: None Musculoskeletal Surgical History: Reports: None Dermatological Surgical History: Reports: None - SUBSTANCE USE Smoking Status *Q: Never Smoker Recreational Drug Use History: No - HOME MEDS Home Medications: Home Meds Losartan [Cozaar] 100 mg PO BEDTIME 12/07/17 [History] Acetaminophen [Tylenol] 650 mg PO Q4H PRN tablet 12/08/17 [Rx] Ferrous Sulfate 325 mg PO TIDMEALS 60 Days #180 tablet 12/08/17 [Rx] Pantoprazole [ProTONIX] 40 mg PO BIDAC 30 Days #60 tab.cr 12/08/17 [Rx] Amoxicillin 500 mg PO BID 01/23/18 [History] Multivit-Min/FA/Lycopene/Lut [Centrum Silver Tablet] 1 tab PO DAILY 01/23/18 [ History] Ondansetron [Zofran ODT] 1 tab SL ASDIRECTED PRN 01/23/18 [History] Rizatriptan Benzoate [Rizatriptan] 1 tab PO ASDIRECTED PRN 01/23/18 [History] - CURRENT (IN HOUSE) MEDS Current Meds: Current Medications Lactated Ringer's (Ringers, Lactated) 1,000 mls @ 100 mls/hr IV ASDIRECTED POPPY Last Admin: 01/24/18 08:11 Dose: 100 mls/hr Sodium Chloride (Saline Flush) 10 ml FLUSH ASDIRECTED PRN PRN Reason: Keep Vein Open Sodium Chloride (Saline Flush) 2.5 ml FLUSH ASDIRECTED PRN PRN Reason: Keep Vein Open Discontinued Medications Cefazolin Sodium (Ancef) 1 gm IV ONCALL ONE Stop: 01/24/18 00:02 Fentanyl (Sublimaze) Confirm Administered Dose 250 mcg .ROUTE .STK-MED ONE Stop: 06/07/18 08:15 Cefazolin Sodium/Dextrose (Ancef) Confirm Administered Dose 50 mls @ as directed .ROUTE .STK-MED ONE Stop: 01/24/18 08:16 Lidocaine (Xylocaine-Mpf 2%) Confirm Administered Dose 10 ml .ROUTE .STK-MED ONE Stop: 01/24/18 08:14 Midazolam HCl (Versed 1 Mg/Ml) Confirm Administered Dose 2 mg .ROUTE .STK-MED ONE Stop: 01/24/18 08:15 Propofol (Diprivan 20 Ml) Confirm Administered Dose 400 mg .ROUTE .STK-MED ONE Stop: 01/24/18 08:15
[2018-01-24] MEDS ORDERED: fentaNYL 100 MCG/2 ML SDV IVPUSH PRN (09:58)
--- NOTE | 2018-01-24 10:28 | PCM.POSTAN ---
POST ANESTHESIA ASSESSMENT - MENTAL STATUS Mental Status: Alert, Oriented - RESPIRATORY Respiratory Status: Respiratory Rate WNL, Airway Patent, O2 Saturation Stable - CARDIOVASCULAR CV Status: Pulse Rate WNL, Blood Pressure Stable - GASTROINTESTINAL GI Status: No Symptoms - POST OP HYDRATION Hydration Status: Adequate & Stable
--- NOTE | 2018-01-24 11:08 | PCM48HPAN ---
Post Anesthesia Note - EVALUATION WITHIN 48HRS OF ANESTHETIC Vital Signs in Normal Range: Yes Patient Participated in Evaluation: Yes Respiratory Function Stable: Yes Airway Patent: Yes Cardiovascular Function Stable: Yes Hydration Status Stable: Yes Pain Control Satisfactory: Yes Nausea and Vomiting Control Satisfactory: Yes Mental Status Recovered: Yes Resp Rate: 14
--- NOTE | 2018-01-24 13:18 | OR ---
SURGEON: Skyler Ray M.D. DATE OF PROCEDURE: 01/24/2018 PREOPERATIVE DIAGNOSIS: Right lower pole calyceal stone, 6 mm. POSTOPERATIVE DIAGNOSIS: Right lower pole calyceal stone, 6 mm. OPERATION: ESWL. DESCRIPTION OF PROCEDURE: The patient was given general anesthesia. She is on lithotripsy table. The position of the patient was adjusted, so the stone could be treated, and eventually received a total of 2000 shocks. At the end of the treatment, the shadow of the stone seemed to disappear. The stone, however, was hard to see from stents, but she also has a fair amount of that interfered with the image. However, I was not possible to visualize the stone at the end of treatment. No longer identified. With that done, the procedure was terminated and the patient was moved to recovery room in good condition. LUCA / MARQUES /[id number]
== END 2018-01-24 12:00 | disposition home or self-care (01) ==
LOC: MW.SDS 07:29
PROVIDERS: ATTEND Urology
DX: N13.2 Hydronephrosis with renal and ureteral calculous obstruction (principal); D64.9 Anemia, unspecified; D68.9 Coagulation defect, unspecified; K21.9 Gastro-esophageal reflux disease without esophagitis; I10 Essential (primary) hypertension; G43.909 Migraine, unspecified, not intractable, without status migrainosus; E66.9 Obesity, unspecified; G47.30 Sleep apnea, unspecified; Z91.09 Other allergy status, other than to drugs and biological substances; Z98.84 Bariatric surgery status; Z90.710 Acquired absence of both cervix and uterus; Z88.8 Allergy status to other drugs, medicaments and biological substances; Z88.5 Allergy status to narcotic agent; Z91.018 Allergy to other foods; Z79.899 Other long term (current) drug therapy; Z68.27 Body mass index [BMI] 27.0-27.9, adult; Z91.040 Latex allergy status
CPT/HCPCS: 50590; J0690; J2250; J3010; J7120; J2704

== ENCOUNTER 2018-01-24 20:49 | Emergency (ER) | payer OTHER ==
--- NOTE | 2018-01-24 21:18 | EDM.PDOC ---
ED HPI GENERAL MEDICAL PROBLEM - General Chief Complaint: Eye Problems Stated Complaint: LEFT EYE PAIN AND ITCHY Time Seen by Provider: 01/24/18 21:05 Source of Information: Reports: Patient History Limitations: Reports: No Limitations - History of Present Illness INITIAL COMMENTS - FREE TEXT/NARRATIVE: HISTORY AND PHYSICAL: History of present illness: [Comes to the emergency room for evaluation of a brown spot that she noticed to her left sclera this evening. She had lithotripsy to her right kidney earlier today completed by Dr. Villalobos. She developed a headache this afternoon. She asked her with into her eyes and he noticed a light brown spot to her sclera. She has not had any pain or itching. Has chronic headaches. Today's headache is no worse than other headaches.] Review of systems: As per history of present illness and below otherwise all systems reviewed and negative. Past medical history: As per history of present illness and as reviewed below otherwise noncontributory. Surgical history: As per history of present illness and as reviewed below otherwise noncontributory. Social history: No reported history of drug or alcohol abuse. Family history: As per history of present illness and as reviewed below otherwise noncontributory. Physical exam: HEENT: Atraumatic, normocephalic. L upper lateral sclera shows a 5mm light brown flat macular lesion. No erythema or injection. Right eye is clear. Lungs: Clear to auscultation, breath sounds equal bilaterally. Heart: S1S2, regular rate and rhythm. Abdomen: Soft, nondistended, nontender. Negative for masses or hepatosplenomegaly. Negative for costovertebral tenderness. Pelvis: Stable nontender. Genitourinary: Deferred. Rectal: Deferred. Extremities: Atraumatic. Neurovascular unremarkable. Neuro: Awake, alert, oriented. Motor and sensory unremarkable throughout. Exam nonfocal. Impression: [brown sclera] Plan: [Discussed w/ patient that findings are benign. Continue to monitor. Follow-up with PCP or ophthalmology early next week. Strict return precautions reviewed. Patient's agreement with today's plan.] Definitive disposition and diagnosis as appropriate pending reevaluation and review of above. left eye Pain Score (Numeric/FACES): 8 headache Pain Score (Numeric/FACES): 8 - Related Data Allergies Allergy/AdvReac Type Severity Reaction Status Date / Time adhesive Allergy Hives Verified 01/23/18 07:35 latex Allergy Hives Verified 01/23/18 07:35 morphine Allergy Anaphylactic Verified 01/23/18 07:35 Shock povidone-iodine Allergy Hives Verified 01/23/18 07:35 [From Betadine] soap [From Betadine] Allergy Hives Verified 01/23/18 07:35 Home Meds: Home Meds Losartan [Cozaar] 100 mg PO BEDTIME 12/07/17 [History] Ferrous Sulfate 325 mg PO TIDMEALS 60 Days #180 tablet 12/08/17 [Rx] Amoxicillin 500 mg PO BID 01/23/18 [History] Past Medical History HEENT History: Reports: Other (See Below) Other HEENT History: wears glasses, has top and bottom dentures Cardiovascular History: Reports: Hypertension Respiratory History: Reports: None Gastrointestinal History: Reports: GERD Genitourinary History: Reports: Renal Calculus 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: Musculoskeletal History: Reports: None Neurological History: Reports: Migraines Psychiatric History: Reports: Anxiety Endocrine/Metabolic History: Reports: None Hematologic History: Reports: Anemia, Blood Transfusion(s) Immunologic History: Reports: None Oncologic (Cancer) History: Reports: None Dermatologic History: Reports: None - Infectious Disease History Infectious Disease History: Reports: None - Past Surgical History Head Surgeries/Procedures: Reports: None HEENT Surgical History: Reports: None Cardiovascular Surgical History: Reports: None Respiratory Surgical History: Reports: None GI Surgical History: Reports: Bariatric Procedure Female Surgical History: Reports: Hysterectomy, Lithotripsy/ESWL, Salpingo- Oophorectomy, Tubal Ligation Other Female Surgeries/Procedures: total hysterectomy with bladder sling December 20, 2017 Endocrine Surgical History: Reports: None Neurological Surgical History: Reports: None Musculoskeletal Surgical History: Reports: None Dermatological Surgical History: Reports: None Social & Family History - Family History Family Medical History: Noncontributory Cardiac: Reports: Other (See Below) Other Cardiac Family History: Heart Disease Endocrine/Metabolic: Reports: Diabetes, type II Oncologic: Reports: Other (See Below) Other Oncologic Family History: Cancer - Tobacco Use Smoking Status *Q: Never Smoker - Caffeine Use Caffeine Use: Reports: Soda - Recreational Drug Use Recreational Drug Use: No ED ROS GENERAL - Review of Systems Review Of Systems: ROS reveals no pertinent complaints other than HPI. ED EXAM GENERAL W FULL EYE - Physical Exam Exam: See Below Course - Vital Signs Last Recorded V/S: Last Vital Signs Temp 97.8 F 01/24/18 20:52 Pulse 89 01/24/18 21:30 Resp 18 01/24/18 21:30 BP 135/81 01/24/18 21:30 Pulse Ox 96 01/24/18 21:30 Departure - Departure Time of Disposition: 21:15 Disposition: Home, Self-Care 01 Condition: Good Clinical Impression: Brown sclera - Discharge Information Instructions: Medical Screening Exam Referrals: PCP,Unknown [Primary Care Provider] - Forms: ED Department Discharge Additional Instructions: The following information is given to patients seen in the emergency department who are being discharged to home. This information is to outline your options for follow-up care. We provide all patients seen in our emergency department with a follow-up referral. The need for follow-up, as well as the timing and circumstances, are variable depending upon the specifics of your emergency department visit. If you don't have a primary care physician on staff, we will provide you with a referral. We always advise you to contact your personal physician following an emergency department visit to inform them of the circumstance of the visit and for follow-up with them and/or the need for any referrals to a consulting specialist. The emergency department will also refer you to a specialist when appropriate. This referral assures that you have the opportunity for follow-up care with a specialist. All of these measure are taken in an effort to provide you with optimal care, which includes your follow-up. Under all circumstances we always encourage you to contact your private physician who remains a resource for coordinating your care. When calling for follow-up care, please make the office aware that this follow-up is from your recent emergency room visit. If for any reason you are refused follow-up, please contact the [facility] emergency department at and asked to speak to the emergency department charge nurse. [address] [address] Follow-up with the supervisor fabrication department or primary care provider in the next 48-72 hours. Continue to monitor for any changes or resolution. Return to ER as needed and as discussed.
== END 2018-01-24 21:30 | disposition home or self-care (01) ==
LOC: MW.ED 20:49
DX: H15.9 Unspecified disorder of sclera (principal); Z91.040 Latex allergy status; Z88.5 Allergy status to narcotic agent; Z88.8 Allergy status to other drugs, medicaments and biological substances
CPT/HCPCS: 99283

== ENCOUNTER 2018-09-13 19:59 | Emergency (ER) | payer OTHER ==
--- NOTE | 2018-09-13 20:34 | EDM.PDOC ---
ED HPI GENERAL MEDICAL PROBLEM - General Chief Complaint: General Stated Complaint: abdominal pain Time Seen by Provider: 09/13/18 20:08 - History of Present Illness INITIAL COMMENTS - FREE TEXT/NARRATIVE: HISTORY AND PHYSICAL: History of present illness: Patient's a 43-year-old white female who is 2 weeks into the Dada and has been doing extensive physical training and now presents with a concern of abdominal soreness request for medical screening exam. Patient is one-year status post hysterectomy for dysfunctional uterine bleeding she denies fever chills nausea vomiting or any direct trauma. Urinary tract signs or symptoms Review of systems: As per history of present illness and below otherwise all systems reviewed and negative. Past medical history: As per history of present illness and as reviewed below otherwise noncontributory. Surgical history: As per history of present illness and as reviewed below otherwise noncontributory. Social history: No reported history of drug or alcohol abuse. Family history: As per history of present illness and as reviewed below otherwise noncontributory. Physical exam: HEENT: Atraumatic, normocephalic, pupils reactive, negative for conjunctival pallor or scleral icterus, mucous membranes moist, throat clear, neck supple, nontender, trachea midline. Lungs: Clear to auscultation, breath sounds equal bilaterally, chest nontender. Heart: S1S2, regular, negative for clicks, rubs, or JVD. Abdomen: Soft, nondistended, no localized tenderness no evidence of hernia no other significant finding. Negative for masses or hepatosplenomegaly. Negative for costovertebral tenderness. Pelvis: Stable nontender. Genitourinary: Deferred. Rectal: Deferred. Extremities: Atraumatic, negative for cords or calf pain. Neurovascular unremarkable. Neuro: Awake, alert, oriented. Cranial nerves II through XII unremarkable. Cerebellum unremarkable. Motor and sensory unremarkable throughout. Exam nonfocal. Diagnostics: CBC CMP and lipase UA Therapeutics: None Impression: #1 medical screening exam Definitive disposition and diagnosis as appropriate pending reevaluation and review of above. - Related Data Allergies Allergy/AdvReac Type Severity Reaction Status Date / Time adhesive Allergy Hives Verified 01/23/18 07:35 latex Allergy Hives Verified 01/23/18 07:35 morphine Allergy Anaphylactic Verified 01/23/18 07:35 Shock Penicillins Allergy Other Verified 09/13/18 20:19 povidone-iodine Allergy Hives Verified 01/23/18 07:35 [From Betadine] soap [From Betadine] Allergy Hives Verified 01/23/18 07:35 Home Meds: Home Meds Losartan [Cozaar] 100 mg PO BEDTIME 12/07/17 [History] Ferrous Sulfate 325 mg PO TIDMEALS 60 Days #180 tablet 12/08/17 [Rx] Past Medical History HEENT History: Reports: Other (See Below) Other HEENT History: wears glasses, has top and bottom dentures Cardiovascular History: Reports: Hypertension Respiratory History: Reports: None Gastrointestinal History: Reports: GERD Genitourinary History: Reports: Renal 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 History: Reports: None Neurological History: Reports: Migraines Psychiatric History: Reports: Anxiety Endocrine/Metabolic History: Reports: None Hematologic History: Reports: Anemia, Blood Transfusion(s) Immunologic History: Reports: None Oncologic (Cancer) History: Reports: None Dermatologic History: Reports: None - Infectious Disease History Infectious Disease History: Reports: None - Past Surgical History Head Surgeries/Procedures: Reports: None HEENT Surgical History: Reports: None Cardiovascular Surgical History: Reports: None Respiratory Surgical History: Reports: None GI Surgical History: Reports: Bariatric Procedure Female Surgical History: Reports: Hysterectomy, Lithotripsy/ESWL, Salpingo- Oophorectomy, Tubal Ligation Other Female Surgeries/Procedures: total hysterectomy with bladder sling December 20, 2017 Endocrine Surgical History: Reports: None Neurological Surgical History: Reports: None Musculoskeletal Surgical History: Reports: None Dermatological Surgical History: Reports: None Social & Family History - Family History Family Medical History: Noncontributory Cardiac: Reports: Other (See Below) Other Cardiac Family History: Heart Disease Endocrine/Metabolic: Reports: Diabetes, type II Oncologic: Reports: Other (See Below) Other Oncologic Family History: Cancer - Tobacco Use Smoking Status *Q: Never Smoker - Caffeine Use Caffeine Use: Reports: Soda - Recreational Drug Use Recreational Drug Use: No ED ROS GENERAL - Review of Systems Review Of Systems: ROS reveals no pertinent complaints other than HPI. ED EXAM, GENERAL - Physical Exam Exam: See Below (See dictation) Course - Vital Signs Last Recorded V/S: Last Vital Signs Temp 36.9 C 09/13/18 20:07 Pulse 113 H 09/13/18 20:07 Resp 18 09/13/18 20:07 BP 187/103 H 09/13/18 20:07 Pulse Ox 97 09/13/18 20:07 - Orders/Labs/Meds Orders: Active Orders 24 hr Category Date Time Status CBC WITH AUTO DIFF [HEME] Stat Lab 09/13/18 20:23 Ordered COMPREHENSIVE METABOLIC PN,CMP [CHEM] Stat Lab 09/13/18 20:23 Ordered INR,PT,PROTHROMBIN TIME [COAG] Stat Lab 09/13/18 20:23 Ordered LIPASE [CHEM] Stat Lab 09/13/18 20:23 Ordered UA RFX AUBREY AND CULT IF INDIC [URIN] Stat Lab 09/13/18 20:10 Received Departure - Departure Time of Disposition: 20:34 Disposition: Home, Self-Care 01 Condition: Good Clinical Impression: Encounter for medical screening examination - Discharge Information Referrals: PCP,Unknown [Primary Care Provider] - Additional Instructions: The following information is given to patients seen in the emergency department who are being discharged to home. This information is to outline your options for follow-up care. We provide all patients seen in our emergency department with a follow-up referral. The need for follow-up, as well as the timing and circumstances, are variable depending upon the specifics of your emergency department visit. If you don't have a primary care physician on staff, we will provide you with a referral. We always advise you to contact your personal physician following an emergency department visit to inform them of the circumstance of the visit and for follow-up with them and/or the need for any referrals to a consulting specialist. The emergency department will also refer you to a specialist when appropriate. This referral assures that you have the opportunity for followup care with a specialist. All of these measure are taken in an effort to provide you with optimal care, which includes your followup. Under all circumstances we always encourage you to contact your private physician who remains a resource for coordinating your care. When calling for followup care, please make the office aware that this follow-up is from your recent emergency room visit. If for any reason you are refused follow-up, please contact the [facility] emergency department at and asked to speak to the emergency department charge nurse. Motrin/Tylenol as directed follow-up primary medical doctor as needed as discussed and return as needed as discussed - My Orders Last 24 Hours: My Active Orders 09/13/18 20:10 UA RFX AUBREY AND CULT IF INDIC [URIN] Stat 09/13/18 20:23 CBC WITH AUTO DIFF [HEME] Stat COMPREHENSIVE METABOLIC PN,CMP [CHEM] Stat INR,PT,PROTHROMBIN TIME [COAG] Stat LIPASE [CHEM] Stat - Assessment/Plan Last 24 Hours: My Active Orders 09/13/18 20:10 UA RFX AUBREY AND CULT IF INDIC [URIN] Stat 09/13/18 20:23 CBC WITH AUTO DIFF [HEME] Stat COMPREHENSIVE METABOLIC PN,CMP [CHEM] Stat INR,PT,PROTHROMBIN TIME [COAG] Stat LIPASE [CHEM] Stat
[2018-09-13 21:12] LABS: CHLORIDE,CL 105 mmol/L (98-107); SODIUM,NA 138 mmol/L (136-145)
== END 2018-09-13 21:43 | disposition home or self-care (01) ==
LOC: MW.ED 19:59
DX: Z13.9 Encounter for screening, unspecified (principal); I10 Essential (primary) hypertension; Z91.040 Latex allergy status; Z88.0 Allergy status to penicillin; Z88.5 Allergy status to narcotic agent; Z88.8 Allergy status to other drugs, medicaments and biological substances; Z79.899 Other long term (current) drug therapy
CPT/HCPCS: 36415; 80053; 81003; 83690; 85025; 85610; 99284